=== PATIENT | female | born 1960 | race Caucasian/White ===

== ENCOUNTER 2023-04-18 15:39 | Inpatient (IN) ==
[2023-04-18] MEDS ORDERED: POLYETHYLENE (MIRALAX) 17 GM PACK PO PRN (16:13)
[2023-04-18] MEDS ORDERED: ACETAMINOPHEN 325 MG TAB PO PRN (16:13)
--- NOTE | 2023-04-18 16:27 | History & Physical Report ---
Date of Service April 18, 2023 Assessment & Plan (1) Hypercalcemia: Plan: Hypercalcemia, weight loss - OSH PTH normal, repeat pending Vitamin D pending -PTHRP ordered SPEP, UPEP, serum free chain analysis ordered and pending CTA/P With gastric pouch contents? Blood products with ulcer versus anastomotic leak - if SPEP/UPEP abnormal/M-protein pending --> Add LDH, [id number], peripheral smear, and onc consult History of Nonischemic HF - Records from [facility] requested - 2007 cardiac cath --> no stents. Pt was told ?viral cause of EF 40%. Repeat EF 55% - +Palpitations. Has a loop recorder. Interrogation pending - +bilateral trace ankle edema. Repeat echo ordered. - EKG: nsr, no ischemic changes on admit (2) H/O gastric bypass: Plan: History of Jeremias-en-Y bypass bariatric surgery 2008 with Michael Ritter -CTA/P "There is wall thickening with adjacent inflammatory stranding at the gastrojejunal anastomosis and there is also debris present within the excluded stomach. Follow-up with bariatric surgery recommended in order to exclude anastomotic dehiscence." -Discussed with - Discussed w Dr. Ritter At [facility]. Reviewed imaging findings. Suspect that this is likely ulcerative blood rather than dehiscence especially with her stable clinical appearance. Recommend a oral only upper GI CT study to evaluate for anastomotic dehiscence. If dehiscence is seen then okay for transfer emergently to [facility]. If no dehiscence is noted suspect that this is a bleed, trying to treat with PPI and Carafate at this time. If she is hemodynamically stable then she can follow-up in their office for an outpatient EGD and evaluation. If she has a prolonged hospital course reasonable to transfer not emergently to [facility] at that time but would prefer this to be done to medical service with surgical consultation given her other renal, and hypercalcemia concerns. If nonemergent transfer is desired and patient is anticipated to be in the hospital for at least several days, reach out to med call [facility] to medical service tomorrow and can notify that this was discussed and okay with Dr. Ritter At time of admission and on reassessment abdomen is benign, she is afebrile, and without a leukocytosis. Serial exams, signed out to overnight provider for monitoring (3) Hypertension: Plan: Patient switched to n.p.o. for concern of of ulcerative/upper GI bleed Patient was initially admitted to medical surgical, will moved to PCU for availability of IV antihypertensives Labetalol on-call for hypertension greater than 180 (4) Psoriatic arthritis: Plan: Psoriatic Arthritis - Continue home meds (5) Iron deficiency anemia: Plan: ? Ulcerative anastomotic bleed with microcytosis. No melena/hematochezia/hematemesis Iron studies recently with iron deficiency, patient on admission has a transferrin saturation of 37% and a ferritin of 303. She did receive 1 outpatient Venofer transfusion from oncology (6) Nonischemic cardiomyopathy: Plan: History of Nonischemic HF - Records from [facility] requested - 2007 cardiac cath --> no stents. Pt was told ?viral cause of EF 40%. Repeat EF 55% - +Palpitations. Has a loop recorder. Interrogation pending - +bilateral trace ankle edema. Repeat echo ordered. - EKG: nsr, no ischemic changes on admit (7) Seizure: Plan: Hx Seizure, - Keppra 500mg BID, switch to IV while n.p.o. 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 Admission and Anticipated Discharge Date Admission Date: April 18, 2023 History of Present Illness Primary Care Provider: Bartolo Waggoner MD Natasha is a 62-year-old female with a past medical history of psoriatic arthritis, iron deficiency anemia, hypertension, BRIANNA who was recommended for direct admission for hypercalcemia and potential malignancy evaluation. She was seen by oncology Dr. Doss as an outpatient for hemoglobin decreased from 12-7. She was found to be iron deficient, during that workup she was also noted to have an BRIANNA. She was given IV iron, patient subsequently with weakness and was seen at [facility] and was found to have a potassium of 2.0, hypercalcemia 13.5. She was hydrated and then discharged however repeat creatinine remained with elevation at 1.78, hypercalcemia remained at 13.4 and patient saw nephrology for outpatient referral. On assessment was recommended for direct admission for additional workup and evaluation, accepted by hospitalist service via transfer center. On admission repeat labs including CMP, CBC, ionized calcium, SPEP, UPEP, serum light chains, vitamin D, PTHRP, and CTA/P were ordered Natasha is seen at the bedside. She reports that she has had 20 pounds of weight loss, fatigue, no appetite for 7 to 8 weeks. She reports she has minimal appetite food sometimes makes her nauseous and she has had around 3 episodes of nonbloody, nonmelanic, nonbilious emesis weekly over this time. Endorses intermittent constipation without melena/hematochezia. She reports food does not cause her pain and she does not have abdominal pain, but it does make her little nauseous and she just has a very poor appetite. She has had no fevers but feels fatigued and has had some intermittent chills and finds she gets cold easily. No rigors. She has had no dysuria but has had urinary urgency. Urine does seem to have a strong odor. No flank pain. Endorse history of kidney stones. She reports that she saw a rheumatology who were concerned and she was referred to oncology for anemia. Was found to have low iron levels and BRIANNA, on subsequent PCP follow-up after receiving IV iron x 1 last Sunday her calcium was elevated and potassium was low and she was admitted to [facility]. She reports she was discharged from [facility] this morning in order to make her nephrology appointment, assessment at that time concerning for her persistent hypercalcemia and BRIANNA with weight loss and overall decline and was recommended for direct admission at that time. She reports she does have a history of cardiac disease in her family, with a brother that at around age 48 from a heart attack. She reports she does have a history of reduced ejection fraction, she had a cardiac catheterization in 2007 at [facility] for which stents were not required. She believes she was told she was thought to have had a viral illness, she is on aspirin but had no stents placed. Subsequent echo showed an EF improvement from 40% at that time to follow-up 55%. She sees Dr. Boothe at present. She reports that she sometimes gets palpitations and short of breath on exertion but she has not had any chest pain or neck/jaw pain She reports she has a loop recorder for palpitations currently in place, she is not on any beta-blockers. She did have her losartan increased from 50 mg once daily up to 50 mg twice daily on April 12. This has been held today by nephrology. She has not had any asymmetrical leg swelling, does endorse some slight ankle swelling bilaterally. No calf pain. Does have a history of psoriatic arthritis and is on Otezla and sulfasalazine for this Has history of hypothyroidism, takes Synthroid 150 mcg which was last increased from 125 mg approximately 6 weeks ago Pt Record Radioactive iodine treatment 1980 Tonsillectomy 1986 Hysterectomy 1992 Cholecystectomy 2004 Carpal tunnel release left wrist 2006 Heart catheterization 2008 Colonoscopies in 2009, 2013, 2019 Gastric bypass 2009 Bladder sling 2010 Left knee arthroscopy 2012 Breast reduction surgery 2014 Dental implants 2013, 2015 Abdominoplasty 2015 Loop recorder placement 2021 Allergies Allergy/AdvReac Type Severity Reaction Status Date / Time doxycycline Allergy Hives Verified 04/18/23 13:39 Home Medications Medication Instructions Recorded Confirmed Type apremilast 30 mg tablet (Otezla) 30 mg PO BID 02/09/20 04/18/23 History mecobalamin (vitamin B12) 1,000 mcg IM MONTHLY 04/22/21 04/18/23 History amlodipine 5 mg tablet 5 mg PO HS 04/18/23 04/18/23 History aspirin 81 mg tablet,delayed 81 mg PO QAM 04/18/23 04/18/23 History release (Adult Low Dose Aspirin) levetiracetam 500 mg tablet 500 mg PO BID 04/18/23 04/18/23 History (Keppra) levocetirizine 5 mg tablet 5 mg PO HS 04/18/23 04/18/23 History levothyroxine 150 mcg capsule 125 mcg PO QAM 04/18/23 04/18/23 History losartan 50 mg tablet 50 mg PO BID 04/18/23 04/18/23 History rosuvastatin 20 mg tablet 20 mg PO HS 04/18/23 04/18/23 History sulfasalazine 500 mg tablet 0.5 g PO BID 04/18/23 04/18/23 History Past Med/Surg History Medical History (Updated 04/18/23 @ 20:40 by Darian Jorgensen MD) Hypothyroid Psoriasis Seasonal allergies Hypertension Surgical History (Updated 04/18/23 @ 20:40 by Darian Jorgensen MD) H/O abdominoplasty History of surgery dental implant H/O bilateral breast reduction surgery S/P left knee arthroscopy History of surgery bladder sling H/O gastric bypass H/O colonoscopy History of cardiac cath History of carpal tunnel surgery of left wrist History of surgery disc decompression History of cholecystectomy H/O: hysterectomy Hx of tonsillectomy Family History Brother Hypertension Heart disease Mother Hypertension Cancer Father Hypertension Stroke Cancer Heart disease Grandfather Stroke Heart disease Aunt Allergies Denies family history of Hearing loss No family history of adverse response to anesthesia No family history of bleeding disorder Asthma Social History Smoking Status: Never smoker Do You Dip or Chew Tobacco: No; Hx Alcohol Use: Yes Alcohol type: beer, wine and hard liquor Alcohol Intake Frequency Comment: Socially per new patient form Hx Substance Use: No Preferred Language: Maori Communication Ability: Effective Body Fitter Required: No Beliefs That Will Affect Care: None marital status: Current Living Situation: Spouse current occupational status: employed 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 NAD. Cooperative. HEENT: Atraumatic, normocephalic. PERLAA. EoM intact. Pulm: CTAB A&P. -wheezes, -rales, -rhonchi. Symmetrical chest rise. No increase in work of breathing. No respiratory distress. Cardiac: RRR, -mrg. Radial pulses intact and symmetrical. Abdominal: Nontender, nondistended, soft. BS diminished Code Status & VTE Plan VTE Prophylaxis Plan VTE Prophylaxis will be ordered: Yes PG Care Time/CCT Total # of Minutes Spent Total Time Spent with Patient: Total time spent is greater than 50% in coordination of care (as documented) at patient's floor/unit and/or counseling patient: Coding Level of Care Code 82361 INT INP/OBS CARE 3/75MIN Diagnoses Hypercalcemia E83.52 H/O gastric bypass Z98.84 Hypertension I10 Psoriatic arthritis L40.50 Iron deficiency anemia D50.9 Nonischemic cardiomyopathy I42.8 Seizure R56.9
[2023-04-18 17:35] LABS: Anisocytosis Present; Basophils # (auto) 0.05 K/uL (0.00-0.20); Basophils % (auto) 1.1 %; Eosinophils # (auto) 0.22 K/uL (0.00-0.50); Eosinophils % (auto) 4.7 %; Hematocrit (blood only) 27.5 % (37.0-47.0); Hemoglobin 8.4 g/dl (12.0-16.0); Immature Granulocytes # (auto) 0.01 K/uL (0.01-0.20); Immature Granulocytes % (auto) 0.2 %; Lymphocytes # (auto) 1.04 K/uL (1.20-3.40); Mean Corpuscular Hemoglobin 21.3 pg (25.0-34.0); Mean Corpuscular Hgb Conc 30.5 g/dL (32.0-36.0); Mean Corpuscular Volume 69.6 fL (80.0-100.0); Mean Platelet Volume 9.7 fL (9.4-12.4); Microcytosis Present; Monocytes # (auto) 0.63 K/uL (0.11-0.59); Monocytes % (auto) 13.3 %; Neutrophils # (auto) 2.77 K/uL (1.40-6.50); Neutrophils % (auto) 58.7 %; Platelet Count 219 K/uL (130-400); RDW Coefficient of Variation 22.5 % (11.5-14.5); RDW Standard Deviation 54.4 fL (36.4-46.3); Red Blood Count 3.95 M/uL (4.20-5.40); White Blood Count 4.72 K/ul (4.8-10.8)
[2023-04-18 17:38] LABS: Reticulocyte % 1.42 % (0.50-2.00)
[2023-04-18 18:02] LABS: Appearance Urine Clear (Clear); Bilirubin Urine Negative (Negative); Blood Urine Negative (Negative); Color Urine Yellow; Glucose Urine UA Negative (Negative); Ketones Urine Negative (Negative); Leukocyte Esterase Urine Negative (Negative); Nitrite Urine Negative (Negative); Protein Urine Negative (Negative); Urobilinogen Urine Negative (Negative)
[2023-04-18 18:03] LABS: Alanine Aminotransferase 16 U/L (7-52); Albumin Globulin Ratio 1.6 (0.9-2); Albumin Level 3.9 gm/dl (3.4-5.0); Alkaline Phosphatase 60 U/L (34-104); Anion Gap 5 (3-11); Aspartate Aminotransferase 27 U/L (13-39); Bilirubin,Total 0.3 mg/dl (0.2-1.0); Blood Urea Nitrogen 12 mg/dl (6-23); Calcium 11.3 mg/dl (8.6-10.3); Carbon Dioxide 24 mmol/L (21-32); Chloride 112 mmol/L (98-107); Est GFR (African American) 49.1 ml/min; Est GFR (Non-African American) 42.4 ml/min; Globulin 2.4 gm/dl (2.5-4.0); Glucose 86 mg/dl (70-99(Fasting)); Iron 120 mcg/dl (35-150); Magnesium 2.2 mg/dl (1.7-2.4); Phosphorus 2.2 mg/dl (2.5-4.9); Potassium 3.9 mmol/L (3.5-5.1); Sodium 141 mmol/L (136-145); Total Iron Binding Cap Calc 328 mcg/dl (250-450); Total Protein 6.3 gm/dl (6.0-8.3); Transferrin (FE) Percent Satur 37 % (15-50); Unsaturated Iron Binding Cap 208 mcg/dl (155-355)
--- NOTE | 2023-04-18 18:05 | XRay Report ---
XR chest 2V PA/lateral HISTORY: 62 years-old Female hypercalcemia assess for nodule, mass acute hypercalcemia COMPARISON: None TECHNIQUE: PA and lateral views of the chest FINDINGS: Cardiac silhouette is upper limits of normal in size. A cardiac loop recorder device is noted. Mild d iffuse reticular interstitial coarsening. No pneumothorax, pleural effusion or airspace consolidation . The bones appear grossly intact. IMPRESSION: 1. No air space consolidation typical for pneumonia. 2. Mild diffuse interstitial coarsening, possibly chronic. ACT 112: Negative or not required by law. The above report was generated using voice recognition software. It may contain grammatical, syntax o r spelling errors. Electronically signed by: Jonah Babb M.D. 04/18/2023 6:04 PM
[2023-04-18 18:17] LABS: Thyroid Stimulating Hormone 3.869 uIu/ml (0.300-4.500)
[2023-04-18 18:23] LABS: Ferritin 303.5 ng/ml (8-388)
[2023-04-18] MEDS: SODIUM CHLORIDE 0.9% 1,000 ML IV SCH (18:32)
--- NOTE | 2023-04-18 19:20 | CT Scan Report ---
ABDOMEN AND PELVIS CT WITHOUT CONTRAST CT DOSE: 742.41 mGy.cm HISTORY: Acute kidney injury BRIANNA, ?malignancy. Contrast limited by renal dz TECHNIQUE: Multiaxial CT images of the abdomen and pelvis were performed without contrast. A dose lo wering technique was utilized adhering to the principles of ALARA. COMPARISON STUDY: CT abdomen and pelvis 09/10/2010 FINDINGS: Decreased attenuation of the cardiac blood pool suggestive of anemia. Intralobular septal t hickening suggestive of pulmonary edema. No free air. The unenhanced spleen, pancreas and adrenal gla nds are unremarkable. Cholecystectomy. Unremarkable liver. 4 mm nonobstructing calculus in the inferi or pole left kidney. Punctate nonobstructing calculus in the superior pole right kidney. No ureteral calculi or hydronephrosis. Hysterectomy. Atherosclerosis of the abdominal aorta. No lymphadenopathy. Gastric bypass. There is mild inflammator y stranding with wall thickening at the gastric jejunal anastomosis on image 83 series 3. Small amoun t of debris noted within the excluded stomach along with an air-filled sac outpouching of the exclude d stomach on image 99 series 3. No bowel obstruction. Colonic diverticulosis. Normal appendix. Unrema rkable soft tissues. No acute fracture. IMPRESSION: 1. Jreemias-en-Y gastric bypass redemonstrated. There is wall thickening with adjacent inflammatory stran ding at the gastrojejunal anastomosis and there is also debris present within the excluded stomach. F ollow-up with bariatric surgery recommended in order to exclude anastomotic dehiscence. 2. No bowel obstruction or pneumoperitoneum. 3. Normal appendix. 4. Nonobstructing bilateral nephrolithiasis. 5. Additional findings as above. ACT 112: Negative or not required by law. The above report was generated using voice recognition software. It may contain grammatical, syntax o r spelling errors. Electronically signed by: Jonah Babb M.D. 04/18/2023 7:18 PM
[2023-04-18] MEDS: PLASMA-LYTE A 1,000 ML IV SCH (21:02)
[2023-04-18] MEDS ORDERED: LABETALOL HCL IV 5 MG/ML 20ML IV PRN (21:19)
[2023-04-18] MEDS: Patient's HEIGHT &/or WEIGHT Needed SCH (21:20)
--- NOTE | 2023-04-18 21:20 | Surgery Consultation ---
Date of Consultation April 18, 2023 Assessment & Plan (1) H/O gastric bypass: The patient has been admitted on the hospital service secondary to hypercalcemia. General surgery has been asked to see due to CT scan abnormality as noted previously in this document. I discussed the case with the admitting hospitalist. Following my visit with the patient the admitting hospitalist was able speak with the patient's bariatric surgeon in [place], [place]. He has reviewed the CT scans and feels that an anastomotic dehiscence or anastomotic leak is unlikely. He feels that this may represent an ulcer at the anastomosis with some blood accumulating near the ulcer. He is recommended that the patient undergo a CT scan of the abdomen and pelvis utilizing oral contrast and if there is any evidence of contrast extravasation/anastomotic leak he will except the patient in transfer for further treatment. He does note that if there is no extravasation that this likely represents an ulcer and the patient should be placed on a proton pump inhibitor and patient should undergo an EGD. At the following time the patient does have a benign abdominal exam. With the above plan noted if the patient does require any surgical intervention this will be performed in [place], [place] where the patient had her gastric bypass surgery. Supervising Physician Co-Signing Physician Notes d/w PA, labs and imaging reviewed, agree with above. h/o LRYGB w/u for hypercalcemia, ct a/p with inflammation at GJ. CT personally reviewed, and agree with baratric surgeons assessment that this likely represents marginal ulcer, especially given recent anemia. Rec repeat ct with oral contrast, if leak then trx. If not, then needs EGD and PPI, avoid nsaid/etoh/tob History of Present Illness Reason for Consultation: Concern for Jeremias-en-Y gastrojejunal anastomotic leak Attending Physician: Darian Jorgensen MD History of Present Illness This is a 62-year-old female who was admitted to the hospital as a direct admission secondary to hypercalcemia. There is concern the patient may have an underlying malignancy. Of note, the patient has been seen by Dr. Doss of oncology as an outpatient secondary to decrease in her hemoglobin. The patient was noted to have iron deficiency as well as acute kidney injury. The patient did receive intravenous iron infusion secondary to this problem. She has had serial labs followed which revealed the patient had an elevated calcium level and for this reason she was referred to nephrology as an outpatient and due to her elevated calcium level inpatient admission was recommended. Since arrival to [facility] the patient has had labs and imaging which) reviewed. The patient did have a CT scan of her abdomen pelvis. Patient has a history of a Jeremias-en-Y gastric bypass the patient was noted to have inflammatory stranding near the gastrojejunal anastomosis. The interpreting radiologist could not exclude anastomotic dehiscence. There is no evidence of pneumoperitoneum or bowel obstruction. Labs include a CBC her white blood cell count is 4.7. Hemoglobin and hematocrit are 8.4 and 27.5. Platelet count is normal. Patient's chemistry profile showed sodium and potassium are normal. Her BUN and creatinine are 12 and 1.3. Calcium level is elevated at 11.3. General surgery was asked to evaluate the patient due to the findings related to her Jeremias-en-Y gastric bypass. The patient does note that she does have some generalized abdominal pain from time to time and this has been going on for several weeks and it usually self resolves. She also notes that over the past several weeks she has had some intermittent nausea and vomiting. She denies ever vomiting any blood. She does not report any melanotic stools. Overall at the present time the patient notes her abdomen does not hurt. At the time of my interview she was resting comfortably in bed she was no distress. Allergies Allergy/AdvReac Type Severity Reaction Status Date / Time doxycycline Allergy Hives Verified 04/18/23 13:39 Home Medications Medication Instructions Recorded Confirmed Type apremilast 30 mg tablet (Otezla) 30 mg PO BID 02/09/20 04/18/23 History mecobalamin (vitamin B12) 1,000 mcg IM MONTHLY 04/22/21 04/18/23 History amlodipine 5 mg tablet 5 mg PO HS 04/18/23 04/18/23 History aspirin 81 mg tablet,delayed 81 mg PO QAM 04/18/23 04/18/23 History release (Adult Low Dose Aspirin) levetiracetam 500 mg tablet 500 mg PO BID 04/18/23 04/18/23 History (Keppra) levocetirizine 5 mg tablet 5 mg PO HS 04/18/23 04/18/23 History levothyroxine 150 mcg capsule 125 mcg PO QAM 04/18/23 04/18/23 History losartan 50 mg tablet 50 mg PO BID 04/18/23 04/18/23 History rosuvastatin 20 mg tablet 20 mg PO HS 04/18/23 04/18/23 History sulfasalazine 500 mg tablet 0.5 g PO BID 04/18/23 04/18/23 History Patient History Medical History Hypothyroid Psoriasis Seasonal allergies Hypertension Surgical History H/O abdominoplasty History of surgery dental implant H/O bilateral breast reduction surgery S/P left knee arthroscopy History of surgery bladder sling H/O gastric bypass H/O colonoscopy History of cardiac cath History of carpal tunnel surgery of left wrist History of surgery disc decompression History of cholecystectomy H/O: hysterectomy Hx of tonsillectomy Family History Brother Hypertension Heart disease Mother Hypertension Cancer Father Hypertension Stroke Cancer Heart disease Grandfather Stroke Heart disease Aunt Allergies Denies family history of Hearing loss No family history of adverse response to anesthesia No family history of bleeding disorder Asthma Social History Smoking Status: Never smoker Do You Dip or Chew Tobacco: No; Hx Alcohol Use: Yes Alcohol type: beer, wine and hard liquor Alcohol Intake Frequency Comment: Socially per new patient form Hx Substance Use: No Preferred Language: Venezuelan Communication Ability: Effective Machinery Rigger Required: No Beliefs That Will Affect Care: None marital status: Current Living Situation: Spouse current occupational status: employed 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 How many Children do You have: 2 Other Information That Helps Us Care for You: No Feels Safe at Home: Yes Safety Concerns: Feels Safe At This Time Assistive Devices: Glasses Review of Systems Constitutional: no fever and no chills Ear, Nose, Mouth, Throat: no ear pain Respiratory: no cough Cardiovascular: no chest pain Gastrointestinal: as per Subjective / HPI Genitourinary: no dysuria Musculoskeletal: no back pain Integumentary: no rash Neurologic: no localized weakness Physical Exam Constitutional: WD/WN, vitals as above Eyes: no conjunctival abnormality ENMT: Ears: no hearing impairment and no external ear abnormality Mouth: no oropharynx abnormality Neck: trachea midline Respiratory: normal respiratory effort; no respiratory distress and no labored breathing Cardiovascular: Rate/Rhythm: regular rate and regular rhythm Gastrointestinal (Abdomen): Abdomen is soft and nondistended. There is no pain with palpation at the time my exam. There is no rebound tenderness or guarding. Musculoskeletal: No calf tenderness Skin: no rashes Neurologic: moves all extremities Psychiatric: A+Ox3, euthymic affect Results & Data Vital Signs (Past 12 Hours) Vital Signs Temp Pulse Resp BP Pulse Ox O2 Del Method 04/18/23 16:20 36.3 C L 89 16 179/80 H 96 Room Air PG Care Time/CCT Total # of Minutes Spent Total Time Spent with Patient: Total time spent is greater than 50% in coordination of care (as documented) at patient's floor/unit and/or counseling patient: Coding Level of Care Code 65537 OFFICE CONSULT LVL 55M Diagnoses H/O gastric bypass Z98.84
[2023-04-18] MEDS: amLODIPine BESYLATE 5 MG TAB PO SCH (21:23)
[2023-04-18] MEDS: levETIRAcetam 500 MG TAB PO SCH (21:23)
[2023-04-18] MEDS: CETIRIZINE HCL 10 MG TABLET PO SCH (21:23)
[2023-04-18] MEDS: sulfaSALAzine 500 MG TABLET PO SCH (21:24)
[2023-04-18] MEDS: ROSUVASTATIN CALCIUM 20 MG TAB PO SCH (21:24)
[2023-04-18] MEDS: METOPROLOL TARTRATE 25 MG TAB PO SCH (21:24)
[2023-04-18] MEDS: PANTOprazole 40 MG in SYRINGE 0 ML IV SCH (21:30)
[2023-04-18] MEDS ORDERED: LORazepam 2 MG in SYRINGE 1 ML IV PRN (21:30)
--- NOTE | 2023-04-18 21:47 | Ultrasound Report ---
Exam(s): US VENOUS BILATERAL LOWER EXTREMITIES EXAM: US Duplex Bilateral Lower Extremities Veins CLINICAL HISTORY: leg swelling, possible malignancy, dvt r/o. TECHNIQUE: Real-time duplex ultrasound scan of the bilateral lower extremity veins integrating B-mode two-dimensional vascular structure, Doppler spectral analysis, color flow Doppler imaging and compression. COMPARISON: No relevant prior studies available. FINDINGS: Right deep veins: Unremarkable. No DVT in the right common femoral, femoral, proximal deep femoral or popliteal veins. The veins demonstrate normal color flow, are normally compressible, with normal phasic flow and/or augmentation response. The interrogated calf veins are patent. Right superficial veins: Unremarkable. No thrombus in the saphenofemoral junction. Left deep veins: Unremarkable. No DVT in the left common femoral, femoral, proximal deep femoral or popliteal veins. The veins demonstrate normal color flow, are normally compressible, with normal phasic flow and/or augmentation response. The interrogated calf veins are patent. Left superficial veins: Unremarkable. No thrombus in the saphenofemoral junction. Soft tissues: No acute findings. No popliteal cyst. IMPRESSION: No evidence for deep vein thrombosis involving the bilateral lower extremities. Electronically signed by: Michael Varghese MD 04/18/23 21:46 PM
[2023-04-18] MEDS: levETIRAcetam IV 500 MG in SODIUM CHLOR 0.9% MINI-B 100 ML IV SCH (22:06)
[2023-04-18] MEDS: METOPROLOL TARTRATE 1 MG/ML VIAL IV SCH (23:33)
[2023-04-19] MEDS ORDERED: HYDROmorphone INJ 0.5 MG/0.5 ML SYR IV PRN (00:16)
[2023-04-19] MEDS: SUCRALFATE 1 GM/10 ML UDC PO SCH (00:40)
--- NOTE | 2023-04-19 00:50 | CT Scan Report ---
Exam(s): CT ABDOMEN + PELVIS With Contrast Oral - High Density Amt: 30 ml gastro EXAM: CT Abdomen and Pelvis With Intravenous Contrast CLINICAL HISTORY: r/o r-en-y anastomotic leak. TECHNIQUE: Axial computed tomography images of the abdomen and pelvis with intravenous contrast. CTDI is 17.2 mGy and DLP is 835.07 mGy-cm. Automated exposure control was utilized for the study. A dose lowering technique was utilized adhering to the principles of ALARA. CONTRAST: Patient received 30 ml gastro of Oral - High Density contrast COMPARISON: Noncontrast CT abdomen and pelvis dated 04/18/2023 FINDINGS: Lung bases: Unremarkable. No mass. No consolidation. ABDOMEN: Liver: Unremarkable. No mass. Gallbladder and bile ducts: Cholecystectomy. No ductal dilation. Pancreas: Unremarkable. No mass. No ductal dilation. Spleen: Unremarkable. No splenomegaly. Adrenals: Unremarkable. No mass. Kidneys and ureters: Subcentimeter punctate nonobstructive nephrolithiasis in the inferior pole of the left kidney. The unenhanced kidneys are otherwise unremarkable. No hydronephrosis or ureteral stones. Stomach and bowel: Stable postsurgical changes consistent with gastric bypass. No evidence for bowel obstruction with oral contrast noted in the mid to small bowel with extension to the cecum and proximal ascending colon. No evidence for contrast leakage. Stable postsurgical changes involving small bowel loops in the left abdomen. No mucosal thickening. PELVIS: Appendix: A normal caliber appendix is noted along the posterior medial aspect of the cecum. Bladder: Unremarkable. No mass. Reproductive: Status post hysterectomy. ABDOMEN and PELVIS: Intraperitoneal space: Unremarkable. No free air. No significant fluid collection. Bones/joints: No acute fracture. No dislocation. Soft tissues: The overlying soft tissues are stable in appearance. No hernia. Vasculature: Unremarkable. No abdominal aortic aneurysm. Lymph nodes: Unremarkable. No enlarged lymph nodes. IMPRESSION: Stable postsurgical changes consistent with gastric bypass. No evidence for bowel obstruction with oral contrast noted in the mid to small bowel with extension to the cecum and proximal ascending colon. No evidence for contrast leakage. No abscess or pneumoperitoneum. Electronically signed by: Michael Varghese MD 04/19/23 00:49 AM
[2023-04-19] MEDS: ACETAMINOPHEN 1,000 MG/100 ML VIAL IV PRN (00:58)
[2023-04-19] MEDS: LABETALOL HCL IV 5 MG/ML 20ML IV STA (01:00)
[2023-04-19] MEDS: HYDROmorphone INJ 0.5 MG/0.5 ML SYR IV PRN (01:29)
[2023-04-19 04:08] LABS: Basophils # (auto) 0.04 K/uL (0.00-0.20); Eosinophils # (auto) 0.24 K/uL (0.00-0.50); Eosinophils % (auto) 5.7 %; Hematocrit (blood only) 24.9 % (37.0-47.0); Hemoglobin 7.8 g/dl (12.0-16.0); Immature Granulocytes # (auto) 0.01 K/uL (0.01-0.20); Immature Granulocytes % (auto) 0.2 %; Lymphocytes % (auto) 28.7 %; Mean Corpuscular Hemoglobin 21.4 pg (25.0-34.0); Mean Corpuscular Hgb Conc 31.3 g/dL (32.0-36.0); Mean Corpuscular Volume 68.4 fL (80.0-100.0); Monocytes # (auto) 0.64 K/uL (0.11-0.59); Monocytes % (auto) 15.3 %; Neutrophils # (auto) 2.05 K/uL (1.40-6.50); Neutrophils % (auto) 49.1 %; RDW Coefficient of Variation 22.5 % (11.5-14.5); RDW Standard Deviation 54.3 fL (36.4-46.3); Red Blood Count 3.64 M/uL (4.20-5.40); White Blood Count 4.18 K/ul (4.8-10.8)
[2023-04-19 04:25] LABS: BUN Creatinine Ratio 7.6 (10-20); Calcium 10.6 mg/dl (8.6-10.3); Creatinine Clr Calc Pharmacy 43.3 ml/min; Est GFR (African American) 50.4 ml/min; Est GFR (Non-African American) 43.5 ml/min; Phosphorus 2.7 mg/dl (2.5-4.9); Potassium 3.5 mmol/L (3.5-5.1)
[2023-04-19 04:49] LABS: Anisocytosis Present; Mean Platelet Volume 9.5 fL (9.4-12.4); Microcytosis Present; Platelet Count 193 K/uL (130-400)
[2023-04-19] MEDS: LEVOTHYROXINE SODIUM 125 MCG TABLET PO SCH (06:32)
[2023-04-19] MEDS ORDERED: LABETALOL HCL IV 5 MG/ML 20ML IV PRN (07:53)
[2023-04-19] MEDS: LABETALOL HCL IV 5 MG/ML 20ML IV PRN (08:05)
--- NOTE | 2023-04-19 08:45 | Gastrointestinal Consultation ---
Date of Consultation April 19, 2023 Assessment & Plan (1) H/O gastric bypass: 62 year old female with history of RYGB in 2013 admitted with anemia w/o report of black or bloody stools however, imaging yesterday showing wall thickening with adjacent inflammatory stranding at the gastrojejunal anastomosis raising concern for ulceration NPO Plan for EGD IV PPI bolus, drip No NSAIDs Ok for baby ASA Trend H&H Monitor and document GI output Transfuse as needed. Thank you for allowing us to participate in the care of this patient. Please call with any acute changes, questions or concerns. Please see addendum below with additional recommendation from my supervising physician. History of Present Illness Reason for Consultation: GI bleed Requesting Physician: Linda Attending Physician: Genevieve Mckeon MD History of Present Illness 62 year old female with history of psoriatic arthritis, iron deficiency anemia, hypertension, BRIANNA, RYGB in 2012 direct admission for hypercalcemia - GI asked to evaluate for GI bleed. Pt was seen and evaluated, chart reviewed. Notes that for the 3-4 weeks she has had upper abd discomfort, inability to tolerate PO, fullness with few bites of food and nausea. She has had intermittent emesis but denies seeing any black or bloody emesis. She notes her bowel movements are infrequent. Does not recall seeing any black or bloody stools. Per documentation, there was review of CT imaging from general surgery and her RYGB team in [facility] and GI was asked to evaluate for ?anastomotic ulceration. Denies NSAIDs No ETOH No tobacco No steroid use EGD/Colon at [facility] in 2019, unremarkable examination per patient CTAP 2023: Stable postsurgical changes consistent with gastric bypass. No evidence for bowel obstruction with oral contrast noted in the mid to small bowel with extension to the cecum and proximal ascending colon. No evidence for contrast leakage. Stable postsurgical changes involving small bowel loops in the left abdomen. No mucosal thickening. CTAP 2023: . Jeremias-en-Y gastric bypass redemonstrated. There is wall thickening with adjacent inflammatory stranding at the gastrojejunal anastomosis and there is also debris present within the excluded stomach. Follow-up with bariatric s urgery recommended in order to exclude anastomotic dehiscence. Allergies Allergy/AdvReac Type Severity Reaction Status Date / Time doxycycline Allergy Hives Verified 04/18/23 13:39 Home Medications Medication Instructions Recorded Confirmed Type apremilast 30 mg tablet (Otezla) 30 mg PO BID 02/09/20 04/18/23 History mecobalamin (vitamin B12) 1,000 mcg IM MONTHLY 04/22/21 04/18/23 History amlodipine 5 mg tablet 5 mg PO HS 04/18/23 04/18/23 History aspirin 81 mg tablet,delayed 81 mg PO QAM 04/18/23 04/18/23 History release (Adult Low Dose Aspirin) levetiracetam 500 mg tablet 500 mg PO BID 04/18/23 04/18/23 History (Keppra) levocetirizine 5 mg tablet 5 mg PO HS 04/18/23 04/18/23 History levothyroxine 150 mcg capsule 125 mcg PO QAM 04/18/23 04/18/23 History losartan 50 mg tablet 50 mg PO BID 04/18/23 04/18/23 History rosuvastatin 20 mg tablet 20 mg PO HS 04/18/23 04/18/23 History sulfasalazine 500 mg tablet 0.5 g PO BID 04/18/23 04/18/23 History Patient History Medical History Hypothyroid Psoriasis Seasonal allergies Hypertension Surgical History H/O abdominoplasty History of surgery dental implant H/O bilateral breast reduction surgery S/P left knee arthroscopy History of surgery bladder sling H/O gastric bypass H/O colonoscopy History of cardiac cath History of carpal tunnel surgery of left wrist History of surgery disc decompression History of cholecystectomy H/O: hysterectomy Hx of tonsillectomy Family History Brother Hypertension Heart disease Mother Hypertension Cancer Father Hypertension Stroke Cancer Heart disease Grandfather Stroke Heart disease Aunt Allergies Denies family history of Hearing loss No family history of adverse response to anesthesia No family history of bleeding disorder Asthma Social History Smoking Status: Never smoker Do You Dip or Chew Tobacco: No; Hx Alcohol Use: Yes Alcohol type: beer, wine and hard liquor Alcohol Intake Frequency Comment: Socially per new patient form Hx Substance Use: No Preferred Language: Palauan Communication Ability: Effective Therapeutic Dietitian Required: No Beliefs That Will Affect Care: None marital status: Current Living Situation: Spouse current occupational status: employed current occupation: [employer] How many Children do You have: 2 Other Information That Helps Us Care for You: No Feels Safe at Home: Yes Safety Concerns: Feels Safe At This Time Assistive Devices: Glasses Review of Systems Review of Systems: All systems reviewed & are unremarkable except as noted in HPI & below Physical Exam Constitutional: WD/WN, vitals as above Respiratory: normal respiratory effort, lungs clear to auscultation Cardiovascular: Rate/Rhythm: regular rate and regular rhythm Gastrointestinal (Abdomen): normal bowel sounds, soft, nontender, no hepatosplenomegaly Skin: no rashes, warm and dry Results & Data Vital Signs (Past 12 Hours) Vital Signs Temp Pulse Pulse Resp BP BP Pulse Ox 04/19/23 08:05 73 202/91 H 04/19/23 07:36 36.3 C L 04/19/23 07:30 65 11 L 92 04/19/23 07:00 68 17 95 04/19/23 07:00 202/91 H 04/19/23 06:39 66 186/92 H 04/19/23 06:06 68 181/80 H 04/19/23 06:04 71 18 95 04/19/23 06:04 181/80 H 04/19/23 06:00 66 13 94 04/19/23 06:00 164/79 H 04/19/23 05:00 172/87 H 04/19/23 05:00 66 14 93 04/19/23 04:00 36.7 C 63 14 162/93 H 94 04/19/23 04:00 68 15 94 04/19/23 03:00 14 168/86 H 04/19/23 03:00 74 15 93 04/19/23 02:00 186/76 H 04/19/23 02:00 71 16 93 04/19/23 01:42 36.6 C 73 16 194/87 H 93 04/19/23 01:40 194/87 H 04/19/23 01:40 75 18 92 04/19/23 01:30 75 18 93 04/19/23 01:27 80 17 94 04/19/23 01:25 72 194/87 H 04/19/23 01:25 16 191/95 H 94 04/19/23 01:25 92 H 17 94 04/19/23 01:00 181/91 H 04/19/23 01:00 69 20 94 04/19/23 00:50 195/98 H 04/19/23 00:50 73 16 94 04/19/23 00:40 178/83 H 04/19/23 00:40 77 16 93 04/19/23 00:31 193/124 H 04/19/23 00:31 85 22 95 04/19/23 00:30 82 04/19/23 00:20 196/102 H 04/19/23 00:20 77 19 91 04/19/23 00:10 72 22 92 04/19/23 00:10 198/103 H 04/19/23 00:01 74 209/104 H 04/19/23 00:00 74 14 93 04/18/23 23:58 76 18 204/117 H 94 04/18/23 23:58 76 20 93 04/18/23 23:34 77 23 93 04/18/23 23:00 78 04/18/23 23:00 04/18/23 22:29 36.5 C 79 16 196/78 H 96 04/18/23 21:37 36.6 C 87 16 182/92 H 97 04/18/23 21:00 O2 Del Method 04/19/23 08:05 04/19/23 07:36 04/19/23 07:30 04/19/23 07:00 Room Air 04/19/23 07:00 04/19/23 06:39 04/19/23 06:06 04/19/23 06:04 Room Air 04/19/23 06:04 04/19/23 06:00 Room Air 04/19/23 06:00 04/19/23 05:00 04/19/23 05:00 Room Air 04/19/23 04:00 Room Air 04/19/23 04:00 04/19/23 03:00 04/19/23 03:00 Room Air 04/19/23 02:00 04/19/23 02:00 Room Air 04/19/23 01:42 Room Air 04/19/23 01:40 04/19/23 01:40 Room Air 04/19/23 01:30 04/19/23 01:27 04/19/23 01:25 04/19/23 01:25 Room Air 04/19/23 01:25 04/19/23 01:00 04/19/23 01:00 04/19/23 00:50 04/19/23 00:50 04/19/23 00:40 04/19/23 00:40 04/19/23 00:31 04/19/23 00:31 04/19/23 00:30 04/19/23 00:20 04/19/23 00:20 04/19/23 00:10 04/19/23 00:10 04/19/23 00:01 04/19/23 00:00 04/18/23 23:58 Room Air 04/18/23 23:58 04/18/23 23:34 04/18/23 23:00 04/18/23 23:00 Room Air 04/18/23 22:29 Room Air 04/18/23 21:37 Room Air 04/18/23 21:00 Room Air Laboratory Results 04/19/23 04/18/23 04/18/23 Range/Units 03:38 Unknown 17:25 WBC 4.18 L (4.8-10.8) K/ul RBC 3.64 L (4.20-5.40) M/uL Hgb 7.8 L (12.0-16.0) g/dl Hct 24.9 L (37.0-47.0) % MCV 68.4 L (80.0-100.0) fL MCH 21.4 L (25.0-34.0) pg MCHC 31.3 L (32.0-36.0) g/dL RDW Std Deviation 54.3 H (36.4-46.3) fL RDW Coeff of Keli 22.5 H (11.5-14.5) % Plt Count 193 (130-400) K/uL MPV 9.5 (9.4-12.4) fL Immature Gran % (Auto) 0.2 % Neut % (Auto) 49.1 % Lymph % (Auto) 28.7 % Dolores % (Auto) 15.3 % Eos % (Auto) 5.7 % Baso % (Auto) 1.0 % Reticulocyte % (Auto) (0.50-2.00) % Neut # (Auto) 2.05 (1.40-6.50) K/uL Lymph # (Auto) 1.20 (1.20-3.40) K/uL Dolores # (Auto) 0.64 H (0.11-0.59) K/uL Eos # (Auto) 0.24 (0.00-0.50) K/uL Baso # (Auto) 0.04 (0.00-0.20) K/uL Reticulocyte # (0.020-0.100) 10^6/uL Immature Gran # (Auto) 0.01 (0.01-0.20) K/uL Anisocytosis Present Microcytosis Present Sodium 142 (136-145) mmol/L Potassium 3.5 (3.5-5.1) mmol/L Chloride 111 H (98-107) mmol/L Carbon Dioxide 26 (21-32) mmol/L Anion Gap 5 (3-11) BUN 10 (6-23) mg/dl Creatinine 1.31 H (0.6-1.2) mg/dl Est Cr Clr Drug Dosing 43.3 Est GFR ( Amer) 50.4 ml/min Est GFR (Non-Af Amer) 43.5 ml/min BUN/Creatinine Ratio 7.6 L (10-20) Glucose 82 (70-99(Fasting)) mg/dl Calcium 10.6 H (8.6-10.3) mg/dl Ionized Calcium (1.12-1.32) mmol/L Phosphorus 2.7 (2.5-4.9) mg/dl Magnesium 2.0 (1.7-2.4) mg/dl Iron (35-150) mcg/dl TIBC (250-450) mcg/dl Unsaturated IBC (155-355) mcg/dl Transferrin % Sat (15-50) % Ferritin (8-388) ng/ml Total Bilirubin (0.2-1.0) mg/dl AST (13-39) U/L ALT (7-52) U/L Alkaline Phosphatase (34-104) U/L Total Protein (6.0-8.3) gm/dl Total Protein (PEP) Pending Albumin (3.4-5.0) gm/dl Albumin (PEP) Pending Globulin (2.5-4.0) gm/dl Albumin/Globulin Ratio (0.9-2) Ewjho-7-Gcdlghrgl Pending Stlwa-8-Eskpzegwb Pending Ajzp-1-Olzeuktl Pending Wexy-6-Daobpyia Pending Gamma Globulins Pending Monoclonal Peak 3 Pending Ser Monoclonl Protein Pending Ser Monoclonal Prot 2 Pending PEP Interpretation Pending 25-OH Vitamin D Total (30-100) ng/ml TSH (0.300-4.500) uIu/ml PTH Intact (12.0-88.0) pg/ml PTH Related Protein Urine Color Yellow Urine Appearance Clear (Clear) Urine pH 6.0 (4.5-7.5) Ur Specific [place] 1.010 (1.000-1.030) Urine Protein Negative (Negative) Urine Glucose (UA) Negative (Negative) Urine Ketones Negative (Negative) Urine Blood Negative (Negative) Urine Nitrite Negative (Negative) Urine Bilirubin Negative (Negative) Urine Urobilinogen Negative (Negative) Ur Leukocyte Esterase Negative (Negative) Nasal Screen MRSA (PCR) Negative (Negative) Free Homeworth LC, Quant Free Lambda LC, Quant Free Homeworth/Lambda Ratio 04/18/23 Range/Units 16:46 WBC 4.72 L (4.8-10.8) K/ul RBC 3.95 L (4.20-5.40) M/uL Hgb 8.4 L (12.0-16.0) g/dl Hct 27.5 L (37.0-47.0) % MCV 69.6 L (80.0-100.0) fL MCH 21.3 L (25.0-34.0) pg MCHC 30.5 L (32.0-36.0) g/dL RDW Std Deviation 54.4 H (36.4-46.3) fL RDW Coeff of Keli 22.5 H (11.5-14.5) % Plt Count 219 (130-400) K/uL MPV 9.7 (9.4-12.4) fL Immature Gran % (Auto) 0.2 % Neut % (Auto) 58.7 % Lymph % (Auto) 22.0 % Dolores % (Auto) 13.3 % Eos % (Auto) 4.7 % Baso % (Auto) 1.1 % Reticulocyte % (Auto) 1.42 (0.50-2.00) % Neut # (Auto) 2.77 (1.40-6.50) K/uL Lymph # (Auto) 1.04 L (1.20-3.40) K/uL Dolores # (Auto) 0.63 H (0.11-0.59) K/uL Eos # (Auto) 0.22 (0.00-0.50) K/uL Baso # (Auto) 0.05 (0.00-0.20) K/uL Reticulocyte # 0.060 (0.020-0.100) 10^6/uL Immature Gran # (Auto) 0.01 (0.01-0.20) K/uL Anisocytosis Present Microcytosis Present Sodium 141 (136-145) mmol/L Potassium 3.9 (3.5-5.1) mmol/L Chloride 112 H (98-107) mmol/L Carbon Dioxide 24 (21-32) mmol/L Anion Gap 5 (3-11) BUN 12 (6-23) mg/dl Creatinine 1.34 H (0.6-1.2) mg/dl Est Cr Clr Drug Dosing Not Reportable Est GFR ( Amer) 49.1 ml/min Est GFR (Non-Af Amer) 42.4 ml/min BUN/Creatinine Ratio 9.0 L (10-20) Glucose 86 (70-99(Fasting)) mg/dl Calcium 11.3 H (8.6-10.3) mg/dl Ionized Calcium 1.56 H (1.12-1.32) mmol/L Phosphorus 2.2 L (2.5-4.9) mg/dl Magnesium 2.2 (1.7-2.4) mg/dl Iron 120 (35-150) mcg/dl TIBC 328 (250-450) mcg/dl Unsaturated IBC 208 (155-355) mcg/dl Transferrin % Sat 37 (15-50) % Ferritin 303.5 (8-388) ng/ml Total Bilirubin 0.3 (0.2-1.0) mg/dl AST 27 (13-39) U/L ALT 16 (7-52) U/L Alkaline Phosphatase 60 (34-104) U/L Total Protein 6.3 (6.0-8.3) gm/dl Total Protein (PEP) Albumin 3.9 (3.4-5.0) gm/dl Albumin (PEP) Globulin 2.4 L (2.5-4.0) gm/dl Albumin/Globulin Ratio 1.6 (0.9-2) Olhko-2-Yewpiasqb Nrnuk-2-Ehbzifjuo Qcrh-3-Vrcxtqqg Folr-1-Eanhsmov Gamma Globulins Monoclonal Peak 3 Ser Monoclonl Protein Ser Monoclonal Prot 2 PEP Interpretation 25-OH Vitamin D Total 38.1 (30-100) ng/ml TSH 3.869 (0.300-4.500) uIu/ml PTH Intact 9.3 L (12.0-88.0) pg/ml PTH Related Protein Pending Urine Color Urine Appearance (Clear) Urine pH (4.5-7.5) Ur Specific [place] (1.000-1.030) Urine Protein (Negative) Urine Glucose (UA) (Negative) Urine Ketones (Negative) Urine Blood (Negative) Urine Nitrite (Negative) Urine Bilirubin (Negative) Urine Urobilinogen (Negative) Ur Leukocyte Esterase (Negative) Nasal Screen MRSA (PCR) (Negative) Free Homeworth LC, Quant Pending Free Lambda LC, Quant Pending Free Homeworth/Lambda Ratio Pending
--- NOTE | 2023-04-19 08:52 | Nephrology Consultation ---
Date of Consultation April 19, 2023 Assessment & Plan (1) Acute kidney injury: * Baseline Cr 0.8 * BRIANNA is due to profound JAMES and hypercalcemia in the setting of ARB therapy * Stop Losartan * Creatinine has improved from 1.7 to 1.3 following IV hydration * Patient remains clinically volume contracted. Continue gentle hydration * 04/18/23 urinalysis is negative for blood, protein, LE. No microscopy performed * 04/18/[address] is negative for hydronephrosis. There is a 4 mm nonobstructing stone in inferior pole L kidney and punctate stone upper pole of R kidney (2) Hypertension: * Stop Losartan due to BRIANNA * Continue Amlodipine for BP management (3) Hypercalcemia: * Ca-citrate was stopped as outpatient * Non-PTH mediated hypercalcemia * Serum Ca improved to 10.6 (Albumin 3.9) following IV hydration, * vitamin D 38, PTH 9.3 * TSH, PTHrp, SIEP, 24 hour urine immunoelectrophoresis - pending * 04/18/23 PA & lat CXR - no nodule, mass, CHF * Continue gentle hydration as outlined above * 01/27 Mammogram negative for malignancy per patient report (4) Iron deficiency anemia: * h/o obesity s/p bariatric surgery 2009. 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 * Received IV iron at [facility] earlier this week * Hgb 7.8 today, 04/18/23 iron saturation 37%, ferritin 303 * FOBT - pending * 04/18/23 abdominal/pelvic CT - possible ulcer at gastrojejunal anastomosis * Gastroenterology plans IV PPI and EGD (5) Psoriatic arthritis: * Managed w/ Apremilast (Otezla) * Apremilast side effect can include weight loss (up to 10% body weight) (6) Seizure disorder: * Managed w/ Keppra therapy * Last seizure > 1 year ago History of Present Illness Reason for Consultation: BRIANNA, hypercalcemia, JAMES, weight loss Attending Physician: Genevieve Mckeon MD History of Present Illness Mrs. Tan is a 62 year old white female who is seen at the request of the [facility] Hospitalist Service for evaluation of BRIANNA, JAMES, hypercalcemia and weight loss. Information for the HPI is obtained from direct patient interview and review of medical records that she has provided from [facility]. Mrs. Tan reports a 25 lb unintentional weight loss and progressive fatigue over the last 4 months. She was seen by her PCP where she was found to have a drop in her Hgb from 12 to 8.6 g/dL 12/26/22 - 03/26/23. Mrs. Tan was referred to Dr. Doss ([facility]) where she was found to have iron sat 8% with ferritin 12, Cr 1.7 (baseline 0.8). IV iron was provided. Unfortunately her symptoms persisted. 04/16/23 she was admitted to [facility]. Evaluation revealed Hgb 9.5, Cr 1.78, Ca13.4. IV hydration was provided. PTH returned 7.0, vitamin D 38. Patient was discharged from [facility] 04/18/23 to attend her NPE w/ [facility] [place] [place] [facility]. At that time she denied fever, night sweats, flank pain, hematuria, foamy urine or uremic symptoms. She denied the regular use of NSAIDS or herbal supplements. She has no prior h/o BRIANNA. There is no FHx of CKD/ESKD. Mrs. Tan reports a h/o obesity managed w/ Jeremias-en-Y surgery ([facility] ~[facility]), Grave's disease s/p thyroid ablation, HTN (on ARB therapy), psoriasis, hypercholesterolemia and seizure disorder. Mrs. Tan reports 01/27 Mammogram was negative for malignancy, last colonoscopy 2018 at [facility] was negative for malignancy. Mrs. Tan is post menopausal and s/p TIKA. Allergies Allergy/AdvReac Type Severity Reaction Status Date / Time doxycycline Allergy Hives Verified 04/18/23 13:39 Home Medications Medication Instructions Recorded Confirmed Type apremilast 30 mg tablet (Otezla) 30 mg PO BID 02/09/20 04/18/23 History mecobalamin (vitamin B12) 1,000 mcg IM MONTHLY 04/22/21 04/18/23 History amlodipine 5 mg tablet 5 mg PO HS 04/18/23 04/18/23 History aspirin 81 mg tablet,delayed 81 mg PO QAM 04/18/23 04/18/23 History release (Adult Low Dose Aspirin) levetiracetam 500 mg tablet 500 mg PO BID 04/18/23 04/18/23 History (Keppra) levocetirizine 5 mg tablet 5 mg PO HS 04/18/23 04/18/23 History levothyroxine 150 mcg capsule 125 mcg PO QAM 04/18/23 04/18/23 History losartan 50 mg tablet 50 mg PO BID 04/18/23 04/18/23 History rosuvastatin 20 mg tablet 20 mg PO HS 04/18/23 04/18/23 History sulfasalazine 500 mg tablet 0.5 g PO BID 04/18/23 04/18/23 History Patient History Medical History Hypothyroid Psoriasis Seasonal allergies Hypertension Surgical History H/O abdominoplasty History of surgery dental implant H/O bilateral breast reduction surgery S/P left knee arthroscopy History of surgery bladder sling H/O gastric bypass H/O colonoscopy History of cardiac cath History of carpal tunnel surgery of left wrist History of surgery disc decompression History of cholecystectomy H/O: hysterectomy Hx of tonsillectomy Family History Brother Hypertension Heart disease Mother Hypertension Cancer Father Hypertension Stroke Cancer Heart disease Grandfather Stroke Heart disease Aunt Allergies Denies family history of Hearing loss No family history of adverse response to anesthesia No family history of bleeding disorder Asthma Social History Smoking Status: Never smoker Do You Dip or Chew Tobacco: No; Hx Alcohol Use: Yes Alcohol type: beer, wine and hard liquor Alcohol Intake Frequency Comment: Socially per new patient form Hx Substance Use: No Preferred Language: Luxembourgish Communication Ability: Effective Electric Organ Checker Required: No Beliefs That Will Affect Care: None marital status: Current Living Situation: Spouse current occupational status: employed current occupation: [employer] How many Children do You have: 2 Other Information That Helps Us Care for You: No Feels Safe at Home: Yes Safety Concerns: Feels Safe At This Time Assistive Devices: Glasses Review of Systems Constitutional: no fever and no weight loss Eyes: no problem reported Ear, Nose, Mouth, Throat: no problem reported Respiratory: no cough and no dyspnea Cardiovascular: no chest pain Gastrointestinal: no abdominal pain, no nausea, no vomiting, no diarrhea/loose stools, no blood in stools and no melena Genitourinary: no dysuria, no urinary frequency, no urinary urgency and no flank pain Integumentary: no rash Neurologic: no problem reported Physical Exam Constitutional: not in distress Eyes: PERRL, conjunctivae normal, anicteric sclerae ENMT: external ear and nose normal, oropharynx normal Neck: trachea midline, no thyromegaly Respiratory: normal respiratory effort, lungs clear to auscultation Cardiovascular: RRR, no murmur, no edema Gastrointestinal (Abdomen): normal bowel sounds, soft, nontender, no hepatosplenomegaly firm 1x1cm nodule palpable RUQ abdomen Skin: no rashes, warm and dry Neurologic: Speech / Cognition: normal speech and normal cognition Psychiatric: Affect: euthymic affect Lymphatic: no cervical or axillary lymphadenopathy no inguinal lymphadenopathy Results & Data Vital Signs (Past 12 Hours) Vital Signs Temp Pulse Pulse Resp BP BP Pulse Ox 04/19/23 08:42 62 150/89 H 04/19/23 08:05 73 202/91 H 04/19/23 07:36 36.3 C L 04/19/23 07:30 65 11 L 92 04/19/23 07:00 68 17 95 04/19/23 07:00 202/91 H 04/19/23 06:39 66 186/92 H 04/19/23 06:06 68 181/80 H 04/19/23 06:04 71 18 95 04/19/23 06:04 181/80 H 04/19/23 06:00 66 13 94 04/19/23 06:00 164/79 H 04/19/23 05:00 172/87 H 04/19/23 05:00 66 14 93 04/19/23 04:00 36.7 C 63 14 162/93 H 94 04/19/23 04:00 68 15 94 04/19/23 03:00 14 168/86 H 04/19/23 03:00 74 15 93 04/19/23 02:00 186/76 H 04/19/23 02:00 71 16 93 04/19/23 01:42 36.6 C 73 16 194/87 H 93 04/19/23 01:40 194/87 H 04/19/23 01:40 75 18 92 04/19/23 01:30 75 18 93 04/19/23 01:27 80 17 94 04/19/23 01:25 72 194/87 H 04/19/23 01:25 16 191/95 H 94 04/19/23 01:25 92 H 17 94 04/19/23 01:00 181/91 H 04/19/23 01:00 69 20 94 04/19/23 00:50 195/98 H 04/19/23 00:50 73 16 94 04/19/23 00:40 178/83 H 04/19/23 00:40 77 16 93 04/19/23 00:31 193/124 H 04/19/23 00:31 85 22 95 04/19/23 00:30 82 04/19/23 00:20 196/102 H 04/19/23 00:20 77 19 91 04/19/23 00:10 72 22 92 04/19/23 00:10 198/103 H 04/19/23 00:01 74 209/104 H 04/19/23 00:00 74 14 93 04/18/23 23:58 76 18 204/117 H 94 04/18/23 23:58 76 20 93 04/18/23 23:34 77 23 93 04/18/23 23:00 78 04/18/23 23:00 04/18/23 22:29 36.5 C 79 16 196/78 H 96 04/18/23 21:37 36.6 C 87 16 182/92 H 97 04/18/23 21:00 O2 Del Method 04/19/23 08:42 04/19/23 08:05 04/19/23 07:36 04/19/23 07:30 04/19/23 07:00 Room Air 04/19/23 07:00 04/19/23 06:39 04/19/23 06:06 04/19/23 06:04 Room Air 04/19/23 06:04 04/19/23 06:00 Room Air 04/19/23 06:00 04/19/23 05:00 04/19/23 05:00 Room Air 04/19/23 04:00 Room Air 04/19/23 04:00 04/19/23 03:00 04/19/23 03:00 Room Air 04/19/23 02:00 04/19/23 02:00 Room Air 04/19/23 01:42 Room Air 04/19/23 01:40 04/19/23 01:40 Room Air 04/19/23 01:30 04/19/23 01:27 04/19/23 01:25 04/19/23 01:25 Room Air 04/19/23 01:25 04/19/23 01:00 04/19/23 01:00 04/19/23 00:50 04/19/23 00:50 04/19/23 00:40 04/19/23 00:40 04/19/23 00:31 04/19/23 00:31 04/19/23 00:30 04/19/23 00:20 04/19/23 00:20 04/19/23 00:10 04/19/23 00:10 04/19/23 00:01 04/19/23 00:00 04/18/23 23:58 Room Air 04/18/23 23:58 04/18/23 23:34 04/18/23 23:00 04/18/23 23:00 Room Air 04/18/23 22:29 Room Air 04/18/23 21:37 Room Air 04/18/23 21:00 Room Air Laboratory Results Laboratory Results WBC 4.18 K/ul (4.8-10.8) L 04/19/23 03:38 RBC 3.64 M/uL (4.20-5.40) L 04/19/23 03:38 Hgb 7.8 g/dl (12.0-16.0) L 04/19/23 03:38 Hct 24.9 % (37.0-47.0) L 04/19/23 03:38 MCV 68.4 fL (80.0-100.0) L 04/19/23 03:38 MCH 21.4 pg (25.0-34.0) L 04/19/23 03:38 MCHC 31.3 g/dL (32.0-36.0) L 04/19/23 03:38 RDW Std Deviation 54.3 fL (36.4-46.3) H 04/19/23 03:38 RDW Coeff of Keli 22.5 % (11.5-14.5) H 04/19/23 03:38 Plt Count 193 K/uL (130-400) 04/19/23 03:38 MPV 9.5 fL (9.4-12.4) 04/19/23 03:38 Immature Gran % (Auto) 0.2 % 04/19/23 03:38 Neut % (Auto) 49.1 % 04/19/23 03:38 Lymph % (Auto) 28.7 % 04/19/23 03:38 Swift % (Auto) 15.3 % 04/19/23 03:38 Eos % (Auto) 5.7 % 04/19/23 03:38 Baso % (Auto) 1.0 % 04/19/23 03:38 Reticulocyte % (Auto) 1.42 % (0.50-2.00) 04/18/23 16:46 Neut # (Auto) 2.05 K/uL (1.40-6.50) 04/19/23 03:38 Lymph # (Auto) 1.20 K/uL (1.20-3.40) 04/19/23 03:38 Swift # (Auto) 0.64 K/uL (0.11-0.59) H 04/19/23 03:38 Eos # (Auto) 0.24 K/uL (0.00-0.50) 04/19/23 03:38 Baso # (Auto) 0.04 K/uL (0.00-0.20) 04/19/23 03:38 Reticulocyte # 0.060 10^6/uL (0.020-0.100) 04/18/23 16:46 Immature Gran # (Auto) 0.01 K/uL (0.01-0.20) 04/19/23 03:38 Anisocytosis Present 04/19/23 03:38 Microcytosis Present 04/19/23 03:38 Sodium 142 mmol/L (136-145) 04/19/23 03:38 Potassium 3.5 mmol/L (3.5-5.1) 04/19/23 03:38 Chloride 111 mmol/L (98-107) H 04/19/23 03:38 Carbon Dioxide 26 mmol/L (21-32) 04/19/23 03:38 Anion Gap 5 (3-11) 04/19/23 03:38 BUN 10 mg/dl (6-23) 04/19/23 03:38 Creatinine 1.31 mg/dl (0.6-1.2) H 04/19/23 03:38 Est Cr Clr Drug Dosing 43.3 ml/min 04/19/23 03:38 Est GFR ( Amer) 50.4 ml/min 04/19/23 03:38 Est GFR (Non-Af Amer) 43.5 ml/min 04/19/23 03:38 BUN/Creatinine Ratio 7.6 (10-20) L 04/19/23 03:38 Glucose 82 mg/dl (70-99(Fasting)) 04/19/23 03:38 Calcium 10.6 mg/dl (8.6-10.3) H 04/19/23 03:38 Ionized Calcium 1.56 mmol/L (1.12-1.32) H 04/18/23 16:46 Phosphorus 2.7 mg/dl (2.5-4.9) 04/19/23 03:38 Magnesium 2.0 mg/dl (1.7-2.4) 04/19/23 03:38 Iron 120 mcg/dl (35-150) 04/18/23 16:46 TIBC 328 mcg/dl (250-450) 04/18/23 16:46 Unsaturated IBC 208 mcg/dl (155-355) 04/18/23 16:46 Transferrin % Sat 37 % (15-50) 04/18/23 16:46 Ferritin 303.5 ng/ml (8-388) 04/18/23 16:46 Total Bilirubin 0.3 mg/dl (0.2-1.0) 04/18/23 16:46 AST 27 U/L (13-39) 04/18/23 16:46 ALT 16 U/L (7-52) 04/18/23 16:46 Alkaline Phosphatase 60 U/L (34-104) 04/18/23 16:46 Total Protein 6.3 gm/dl (6.0-8.3) 04/18/23 16:46 Albumin 3.9 gm/dl (3.4-5.0) 04/18/23 16:46 Globulin 2.4 gm/dl (2.5-4.0) L 04/18/23 16:46 Albumin/Globulin Ratio 1.6 (0.9-2) 04/18/23 16:46 25-OH Vitamin D Total 38.1 ng/ml (30-100) 04/18/23 16:46 TSH 3.869 uIu/ml (0.300-4.500) 04/18/23 16:46 PTH Intact 9.3 pg/ml (12.0-88.0) L 04/18/23 16:46 Urine Color Yellow 04/18/23 17:25 Urine Appearance Clear (Clear) 04/18/23 17:25 Urine pH 6.0 (4.5-7.5) 04/18/23 17:25 Ur Specific [place] 1.010 (1.000-1.030) 04/18/23 17:25 Urine Protein Negative (Negative) 04/18/23 17:25 Urine Glucose (UA) Negative (Negative) 04/18/23 17: Urine Ketones Negative (Negative) 04/18/23 17:25 Urine Blood Negative (Negative) 04/18/23 17:25 Urine Nitrite Negative (Negative) 04/18/23 17:25 Urine Bilirubin Negative (Negative) 04/18/23 17:25 Urine Urobilinogen Negative (Negative) 04/18/23 17:25 Ur Leukocyte Esterase Negative (Negative) 04/18/23 17:25 Nasal Screen MRSA (PCR) Negative (Negative) 04/18/23 Unknown Impressions Chest X-Ray 04/18/23 16:32 XR chest 2V PA/lateral HISTORY: 62 years-old Female hypercalcemia assess for nodule, mass acute hypercalcemia COMPARISON: None TECHNIQUE: PA and lateral views of the chest FINDINGS: Cardiac silhouette is upper limits of normal in size. A cardiac loop recorder device is noted. Mild diffuse reticular interstitial coarsening. No pneumothorax, pleural effusion or airspace consolidation. The bones appear grossly intact. IMPRESSION: 1. No air space consolidation typical for pneumonia. 2. Mild diffuse interstitial coarsening, possibly chronic. ACT 112: Negative or not required by law. The above report was generated using voice recognition software. It may contain grammatical, syntax or spelling errors. Electronically signed by: Jonah Babb M.D. 04/18/2023 6:04 PM Venous Doppler Study 04/18/23 17:40 Exam(s): US VENOUS BILATERAL LOWER EXTREMITIES EXAM: US Duplex Bilateral Lower Extremities Veins CLINICAL HISTORY: leg swelling, possible malignancy, dvt r/o. TECHNIQUE: Real-time duplex ultrasound scan of the bilateral lower extremity veins integrating B-mode two-dimensional vascular structure, Doppler spectral analysis, color flow Doppler imaging and compression. COMPARISON: No relevant prior studies available. FINDINGS: Right deep veins: Unremarkable. No DVT in the right common femoral, femoral, proximal deep femoral or popliteal veins. The veins demonstrate normal color flow, are normally compressible, with normal phasic flow and/or augmentation response. The interrogated calf veins are patent. Right superficial veins: Unremarkable. No thrombus in the saphenofemoral junction. Left deep veins: Unremarkable. No DVT in the left common femoral, femoral, proximal deep femoral or popliteal veins. The veins demonstrate normal color flow, are normally compressible, with normal phasic flow and/or augmentation response. The interrogated calf veins are patent. Left superficial veins: Unremarkable. No thrombus in the saphenofemoral junction. Soft tissues: No acute findings. No popliteal cyst. IMPRESSION: No evidence for deep vein thrombosis involving the bilateral lower extremities. Electronically signed by: Michael Varghese MD 04/18/23 21:46 PM Abdomen/Pelvis CT 04/18/23 21:04 Exam(s): CT ABDOMEN + PELVIS With Contrast Oral - High Density Amt: 30 ml gastro EXAM: CT Abdomen and Pelvis With Intravenous Contrast CLINICAL HISTORY: r/o r-en-y anastomotic leak. TECHNIQUE: Axial computed tomography images of the abdomen and pelvis with intravenous contrast. CTDI is 17.2 mGy and DLP is 835.07 mGy-cm. Automated exposure control was utilized for the study. A dose lowering technique was utilized adhering to the principles of ALARA. CONTRAST: Patient received 30 ml gastro of Oral - High Density contrast COMPARISON: Noncontrast CT abdomen and pelvis dated 04/18/2023 FINDINGS: Lung bases: Unremarkable. No mass. No consolidation. ABDOMEN: Liver: Unremarkable. No mass. Gallbladder and bile ducts: Cholecystectomy. No ductal dilation. Pancreas: Unremarkable. No mass. No ductal dilation. Spleen: Unremarkable. No splenomegaly. Adrenals: Unremarkable. No mass. Kidneys and ureters: Subcentimeter punctate nonobstructive nephrolithiasis in the inferior pole of the left kidney. The unenhanced kidneys are otherwise unremarkable. No hydronephrosis or ureteral stones. Stomach and bowel: Stable postsurgical changes consistent with gastric bypass. No evidence for bowel obstruction with oral contrast noted in the mid to small bowel with extension to the cecum and proximal ascending colon. No evidence for contrast leakage. Stable postsurgical changes involving small bowel loops in the left abdomen. No mucosal thickening. PELVIS: Appendix: A normal caliber appendix is noted along the posterior medial aspect of the cecum. Bladder: Unremarkable. No mass. Reproductive: Status post hysterectomy. ABDOMEN and PELVIS: Intraperitoneal space: Unremarkable. No free air. No significant fluid collection. Bones/joints: No acute fracture. No dislocation. Soft tissues: The overlying soft tissues are stable in appearance. No hernia. Vasculature: Unremarkable. No abdominal aortic aneurysm. Lymph nodes: Unremarkable. No enlarged lymph nodes. IMPRESSION: Stable postsurgical changes consistent with gastric bypass. No evidence for bowel obstruction with oral contrast noted in the mid to small bowel with extension to the cecum and proximal ascending colon. No evidence for contrast leakage. No abscess or pneumoperitoneum. Electronically signed by: Michael Varghese MD 04/19/23 00:49 AM PG Care Time/CCT Total # of Minutes Spent Total Time Spent with Patient: Total time spent is greater than 50% in coordination of care (as documented) at patient's floor/unit and/or counseling patient: Coding Level of Care Code 62153 IN/OBS CONSULT LVL 5,80M Diagnoses Acute kidney injury N17.9 Hypertension I10 Hypercalcemia E83.52 Iron deficiency anemia D50.9 Psoriatic arthritis L40.50 Seizure disorder G40.909
[2023-04-19] MEDS: amLODIPine BESYLATE 5 MG TAB PO SCH (08:54)
[2023-04-19] MEDS: levETIRAcetam 500 MG TAB PO SCH (08:54)
[2023-04-19] MEDS ORDERED: LOSARTAN POTASSIUM 50 MG TAB PO SCH (09:00)
[2023-04-19] MEDS ORDERED: ASPIRIN 81 MG ECTAB PO SCH (09:00)
--- NOTE | 2023-04-19 11:17 | History & Physical Bridge Note ---
Date of Service April 19, 2023 History & Physical Bridge Note I have examined the patient, reviewed the History & Physical and in the interval since the performance of the History & Physical I have noted the following changes of clinical significance: no changes noted Supervising Physician Co-Signing Physician Notes EGD for evaluation of abnl imaging.
--- NOTE | 2023-04-19 11:28 | Anesthesiology Consultation ---
Date of Service April 19, 2023 Assessment & Plan Consults Requested medical & cardiac Pulmonary History Surgery Operation Date: 04/19/23 16:30 Proposed Procedures p Esophagogastroduodenoscopy Dr. Alessia Aggarwal MD Height/Weight Height: 5 ft 7 in Weight: 69.9 kg Allergies Allergy/AdvReac Type Severity Reaction Status Date / Time doxycycline Allergy Hives Verified 04/18/23 13:39 Medications Home Medications Medication Instructions Recorded Confirmed Last Taken apremilast 30 mg tablet (Otezla) 30 mg PO BID 02/09/20 04/18/23 04/18/23 mecobalamin (vitamin B12) 1,000 mcg IM MONTHLY 04/22/21 04/18/23 04/06/23 amlodipine 5 mg tablet 5 mg PO HS 04/18/23 04/18/23 Unknown aspirin 81 mg tablet,delayed 81 mg PO QAM 04/18/23 04/18/23 04/18/23 release (Adult Low Dose Aspirin) levetiracetam 500 mg tablet 500 mg PO BID 04/18/23 04/18/23 04/18/23 (Keppra) levocetirizine 5 mg tablet 5 mg PO HS 04/18/23 04/18/23 Unknown levothyroxine 150 mcg capsule 125 mcg PO QAM 04/18/23 04/18/23 04/18/23 losartan 50 mg tablet 50 mg PO BID 04/18/23 04/18/23 04/18/23 rosuvastatin 20 mg tablet 20 mg PO HS 04/18/23 04/18/23 Unknown sulfasalazine 500 mg tablet 0.5 g PO BID 04/18/23 04/18/23 04/18/23 Active Medications Generic Name Dose Route Start Last Admin Trade Name Freq PRN Reason Stop Dose Admin Amlodipine Besylate 5 mg 04/18/23 21:00 04/18/23 21:23 Amlodipine Besylate 5 Mg Tab PO 05/18/23 20:59 Not Given HS [facility] Amlodipine Besylate 10 mg 04/19/23 09:00 04/19/23 08:54 Amlodipine Besylate 5 Mg Tab PO 05/19/23 08:59 10 mg QAM [facility] Administration Cetirizine HCl 10 mg 04/18/23 21:00 04/18/23 21:23 Cetirizine Hcl 10 Mg Tablet PO 05/18/23 20:59 Not Given HS [facility] Hydromorphone HCl 0.5 mg 04/19/23 00:16 04/19/23 07:23 Hydromorphone Inj 0.5 Mg/0.5 Ml Syr IV 05/03/23 00:15 0.5 mg Q6H PRN Administration Pain 8+ Parenteral Electrolytes 1,000 mls @ 80 mls/hr 04/18/23 21:00 04/18/23 21:02 Plasma-Lyte A Ph 7.4 IV 05/18/23 20:59 80 mls/hr .[id number] [facility] Administration Pantoprazole Sodium 40 mg/ 10 mls @ 5 mls/min 04/18/23 21:15 04/19/23 08:12 Syringe IV 05/18/23 21:14 5 mls/min BID [facility] Administration Acetaminophen 1,000 mg in 100 mls @ 400 mls/hr 04/19/23 00:16 04/19/23 01:15 Ofirmev IV 04/22/23 00:15 Infused Q8H PRN Infusion Pain or Agitation Labetalol HCl 10 mg 04/19/23 07:56 04/19/23 08:05 Labetalol Hcl Iv 5 Mg/Ml 20ml IV 05/18/23 21:18 10 mg Q6H PRN Administration SBP > 180 Levetiracetam 500 mg 04/18/23 21:00 04/18/23 21:23 Levetiracetam 500 Mg Tab PO 05/18/23 20:59 Not Given BID [facility] Levetiracetam 500 mg 04/19/23 09:00 04/19/23 08:54 Levetiracetam 500 Mg Tab PO 05/19/23 08:59 500 mg BID [facility] Administration Metoprolol Tartrate 25 mg 04/18/23 21:00 04/18/23 21:24 Metoprolol Tartrate 25 Mg Tab PO 05/18/23 20:59 Not Given BID [facility] Rosuvastatin Calcium 20 mg 04/18/23 21:00 04/18/23 21:24 Rosuvastatin Calcium 20 Mg Tab PO 05/18/23 20:59 Not Given HS [facility] Sucralfate 1 gm 04/19/23 00:00 04/19/23 08:12 Sucralfate 1 Gm/10 Ml Udc PO 05/19/23 00:00 Not Given QID [facility] Sulfasalazine 500 mg 04/18/23 21:00 04/18/23 21:24 Sulfasalazine 500 Mg Tablet PO 05/18/23 20:59 Not Given BID [facility] NPO Date Last Intake of Fluids: 04/19/23 Time Last Intake of Fluids: 09:00 Date Last Intake of Solids: 04/18/23 Time Last Intake of Solids: 12:00 Past Medical History Medical History Hypothyroid Psoriasis Seasonal allergies Hypertension Past Family History Family History Brother Hypertension Heart disease Mother Hypertension Cancer Father Hypertension Stroke Cancer Heart disease Grandfather Stroke Heart disease Aunt Allergies Denies family history of Hearing loss No family history of adverse response to anesthesia No family history of bleeding disorder Asthma Past Surgical History Surgical History H/O abdominoplasty History of surgery dental implant H/O bilateral breast reduction surgery S/P left knee arthroscopy History of surgery bladder sling H/O gastric bypass H/O colonoscopy History of cardiac cath History of carpal tunnel surgery of left wrist History of surgery disc decompression History of cholecystectomy H/O: hysterectomy Hx of tonsillectomy Social History Smoking Status: Never smoker Do You Dip or Chew Tobacco: No Hx Alcohol Use: Yes Alcohol type: beer, wine and hard liquor alcohol intake frequency: holidays/special occasions only Hx Substance Use: No substance use type: does not use Physical Exam Vital Signs Last Vital Signs Temp 36.3 C L 04/19/23 11:10 Pulse 78 04/19/23 11:10 Resp 16 04/19/23 11:10 BP 189/91 H 04/19/23 11:10 Pulse Ox 93 04/19/23 11:10 O2 Del Method Room Air 04/19/23 11:10 Testing Laboratory Results 04/19/23 03:38 04/19/23 03:38 Urine Color Yellow 04/18/23 17:25 Urine Appearance Clear (Clear) 04/18/23 17:25 Urine pH 6.0 (4.5-7.5) 04/18/23 17:25 Ur Specific [place] 1.010 (1.000-1.030) 04/18/23 17:25 Urine Protein Negative (Negative) 04/18/23 17:25 Urine Glucose (UA) Negative (Negative) 04/18/23 17:25 Urine Ketones Negative (Negative) 04/18/23 17:25 Urine Nitrite Negative (Negative) 04/18/23 17:25 Ur Leukocyte Esterase Negative (Negative) 04/18/23 17:25
--- NOTE | 2023-04-19 11:45 | GI REPORT ---
Patient Name: Natasha Tan Procedure Date: 04/19/2023 11:35 AM Date of : 1960 Admit Type: Inpatient Age: 62 Gender: Female Attending MD: Sherin Aggarwal M.d., Procedure: Upper GI endoscopy Providers: Sherin Aggarwal M.d. Referring MD: Pastor Saleh Indications: Anemia Medicines: See the Anesthesia note for documentation of the administered medications Complications: No immediate complications. Estimated Blood Loss: Estimated blood loss: none. Procedure: Pre-Anesthesia Assessment: - Patient identification and proposed procedure were verified prior to the procedure by the physician, the nurse and the anesthesiologist. The procedure was verified in the pre-procedure area. - Prior to the procedure, a History and Physical was performed, and patient medications, allergies and sensitivities were reviewed. The patient's tolerance of previous anesthesia was reviewed. - The risks and benefits of the procedure and the sedation options and risks were discussed with the patient. All questions were answered and informed consent was obtained. After obtaining informed consent, the endoscope was passed under direct vision. Throughout the procedure, the patient's blood pressure, pulse, and oxygen saturations were monitored continuously. The Endoscope was introduced through the mouth and advanced to the jejunum. The upper GI endoscopy was accomplished without difficulty. The patient tolerated the procedure well. Findings: The examined esophagus appeared normal. The Z-line appeared regular. Evidence of a gastric bypass was found. A gastric pouch was found - one mild erythematous area was noted. The gastrojejunal anastomosis was characterized by healthy appearing mucosa. The examined jejunum appeared normal. Impression: - Normal esophagus. - Z-line regular. - Gastric bypass. One mildly erythematous area was noted. Gastrojejunal anastomosis characterized by healthy appearing mucosa. - Normal examined jejunum. Recommendation: - Return to the floor. - Consider PPI and Carafate daily. Smitha Zamudio M.d. 04/19/2023 11:45:35 AM This report has been signed electronically. Note Initiated On: 04/19/2023 11:35 AM Number of Addenda: 0 I attest to the content of the Intraoperative Record and orders documented therein, exceptions below {[id number]}
--- NOTE | 2023-04-19 11:46 | Communication Note ---
Date of Service: April 19, 2023 EGD done with findings of a slightly erythematous area in the gastric pouch. Consider carafate for 28 days and ppi daily. Avoid nsaid's, smoking. outpatient colon with her regular providers in [place] and or [facility].
[2023-04-19] MEDS: PROPOFOL IV EMULSION 10 MG/ML 20 ML VIAL IV ONE (12:53)
[2023-04-19] MEDS: LIDOCAINE 2% 2 ML VIAL/AMP(20MG/ML) INFIL ONE (12:53)
--- NOTE | 2023-04-19 13:34 | Surgery Progress Note ---
Date of Service April 19, 2023 Assessment & Plan (1) Hypercalcemia: Plan: Patient admitted with hypercalcemia. A CT for workup was obtained that revealed question of anastomotic dehiscence vs ulcer and repeat w/ contrast showed no extravasation or acute issues w/ RYGB Today GI was consulted and performed an EGD that revealed some mild gastric eyrthema of the pouch. started on ppi and carafate WBC 4, hbg 7.8. Hypertensive No belly pain, nausea/vomiting. Non tender From our standpoint no contraindications for a diet if okay w/ GI We have no plans for surgical intervention. Outpt follow up with her [facility] We will follow from periphery, please call if any questions/concerns (2) H/O gastric bypass: Admission and Anticipated Discharge Date Admission Date: April 18, 2023 Supervising Physician Co-Signing Physician Notes Patient seen and examined, labs and imaging reviewed, agree with above. During workup for hypercalcemia question of anastomotic disruption at GJ from prior Jeremias-en-Y gastric bypass. No abdominal symptoms. CT with oral contrast showed no evidence of extravasation or leak. EGD today showed small erythema, possible early marginal ulceration. Abdomen soft, nontender, nondistended. No indication for acute surgical intervention. Surgery will sign off, call with questions or concerns. Recommend avoidance of NSAIDs, tobacco, and alcohol. Recommend PPI and consider Carafate. Follow-up with bariatric surgeon as an outpatient. Subjective Patient feeling well from abdominal standpoint. Denies pain or nausea. Been passing flatus and BM prior to coming in. Has a little bit of a headache. Thirsty and hungry. Physical Exam Physical Exam: awake/alert, no distress Respiratory: normal respiratory effort Gastrointestinal (Abdomen): Inspection/Auscultation: abdomen not distended Percussion/Palpation: abdomen soft; abdomen nontender Results & Data Vital Signs (Past 12 Hours) Vital Signs Temp Pulse Pulse Resp BP BP Pulse Ox 04/19/23 12:38 77 18 97 04/19/23 12:38 192/88 H 04/19/23 12:15 71 16 165/63 H 95 04/19/23 12:13 97.7 F 04/19/23 12:00 66 16 155/63 H 94 04/19/23 11:45 71 14 134/60 94 04/19/23 11:10 97.3 F L 78 16 189/91 H 93 04/19/23 08:42 62 150/89 H 04/19/23 08:05 73 202/91 H 04/19/23 07:36 97.3 F L 04/19/23 07:30 65 11 L 92 04/19/23 07:00 68 17 95 04/19/23 07:00 202/91 H 04/19/23 06:39 66 186/92 H 04/19/23 06:06 68 181/80 H 04/19/23 06:04 71 18 95 04/19/23 06:04 181/80 H 04/19/23 06:00 66 13 94 04/19/23 06:00 164/79 H 04/19/23 05:00 172/87 H 04/19/23 05:00 66 14 93 04/19/23 04:00 98.1 F 63 14 162/93 H 94 04/19/23 04:00 68 15 94 04/19/23 03:00 14 168/86 H 04/19/23 03:00 74 15 93 04/19/23 02:00 186/76 H 04/19/23 02:00 71 16 93 04/19/23 01:42 97.9 F 73 16 194/87 H 93 04/19/23 01:40 194/87 H 04/19/23 01:40 75 18 92 O2 Del Method 04/19/23 12:38 04/19/23 12:38 04/19/23 12:15 Room Air 04/19/23 12:13 04/19/23 12:00 Room Air 04/19/23 11:45 Room Air 04/19/23 11:10 Room Air 04/19/23 08:42 04/19/23 08:05 04/19/23 07:36 04/19/23 07:30 04/19/23 07:00 Room Air 04/19/23 07:00 04/19/23 06:39 04/19/23 06:06 04/19/23 06:04 Room Air 04/19/23 06:04 04/19/23 06:00 Room Air 04/19/23 06:00 04/19/23 05:00 04/19/23 05:00 Room Air 04/19/23 04:00 Room Air 04/19/23 04:00 04/19/23 03:00 04/19/23 03:00 Room Air 04/19/23 02:00 04/19/23 02:00 Room Air 04/19/23 01:42 Room Air 04/19/23 01:40 04/19/23 01:40 Room Air PG Care Time/CCT Total # of Minutes Spent Total Time Spent with Patient: Total time spent is greater than 50% in coordination of care (as documented) at patient's floor/unit and/or counseling patient: Coding Level of Care Code 42322 SUB INP/OBS CARE 03/01MIN Diagnoses Hypercalcemia E83.52 H/O gastric bypass Z98.84
--- NOTE | 2023-04-19 15:12 | Anesthesiology Progress Note ---
Date of Service April 19, 2023 Anesthesia Post Procedure Vital Signs Vital Signs: Temp Pulse Pulse Resp BP BP Pulse Ox 04/19/23 12:38 77 18 97 04/19/23 12:38 192/88 H 04/19/23 12:15 71 16 165/63 H 95 04/19/23 12:13 36.5 C 04/19/23 12:00 66 16 155/63 H 94 04/19/23 11:45 71 14 134/60 94 04/19/23 11:10 36.3 C L 78 16 189/91 H 93 04/19/23 08:42 62 150/89 H 04/19/23 08:05 73 202/91 H 04/19/23 07:36 36.3 C L 04/19/23 07:30 65 11 L 92 04/19/23 07:00 68 17 95 04/19/23 07:00 202/91 H 04/19/23 06:39 66 186/92 H 04/19/23 06:06 68 181/80 H 04/19/23 06:04 71 18 95 04/19/23 06:04 181/80 H 04/19/23 06:00 66 13 94 04/19/23 06:00 164/79 H 04/19/23 05:00 172/87 H 04/19/23 05:00 66 14 93 04/19/23 04:00 36.7 C 63 14 162/93 H 94 04/19/23 04:00 68 15 94 04/19/23 03:00 14 168/86 H 04/19/23 03:00 74 15 93 04/19/23 02:00 186/76 H 04/19/23 02:00 71 16 93 04/19/23 01:42 36.6 C 73 16 194/87 H 93 04/19/23 01:40 194/87 H 04/19/23 01:40 75 18 92 04/19/23 01:30 75 18 93 04/19/23 01:27 80 17 94 04/19/23 01:25 72 194/87 H 04/19/23 01:25 16 191/95 H 94 04/19/23 01:25 92 H 17 94 04/19/23 01:00 181/91 H 04/19/23 01:00 69 20 94 04/19/23 00:50 195/98 H 04/19/23 00:50 73 16 94 04/19/23 00:40 178/83 H 04/19/23 00:40 77 16 93 04/19/23 00:31 193/124 H 04/19/23 00:31 85 22 95 04/19/23 00:30 82 04/19/23 00:20 196/102 H 04/19/23 00:20 77 19 91 04/19/23 00:10 72 22 92 04/19/23 00:10 198/103 H 04/19/23 00:01 74 209/104 H 04/19/23 00:00 74 14 93 04/18/23 23:58 76 18 204/117 H 94 04/18/23 23:58 76 20 93 04/18/23 23:34 77 23 93 04/18/23 23:00 78 04/18/23 23:00 04/18/23 22:29 36.5 C 79 16 196/78 H 96 04/18/23 21:37 36.6 C 87 16 182/92 H 97 04/18/23 21:00 04/18/23 16:20 36.3 C L 89 16 179/80 H 96 O2 Del Method 04/19/23 12:38 04/19/23 12:38 04/19/23 12:15 Room Air 04/19/23 12:13 04/19/23 12:00 Room Air 04/19/23 11:45 Room Air 04/19/23 11:10 Room Air 04/19/23 08:42 04/19/23 08:05 04/19/23 07:36 04/19/23 07:30 04/19/23 07:00 Room Air 04/19/23 07:00 04/19/23 06:39 04/19/23 06:06 04/19/23 06:04 Room Air 04/19/23 06:04 04/19/23 06:00 Room Air 04/19/23 06:00 04/19/23 05:00 04/19/23 05:00 Room Air 04/19/23 04:00 Room Air 04/19/23 04:00 04/19/23 03:00 04/19/23 03:00 Room Air 04/19/23 02:00 04/19/23 02:00 Room Air 04/19/23 01:42 Room Air 04/19/23 01:40 04/19/23 01:40 Room Air 04/19/23 01:30 04/19/23 01:27 04/19/23 01:25 04/19/23 01:25 Room Air 04/19/23 01:25 04/19/23 01:00 04/19/23 01:00 04/19/23 00:50 04/19/23 00:50 04/19/23 00:40 04/19/23 00:40 04/19/23 00:31 04/19/23 00:31 04/19/23 00:30 04/19/23 00:20 04/19/23 00:20 04/19/23 00:10 04/19/23 00:10 04/19/23 00:01 04/19/23 00:00 04/18/23 23:58 Room Air 04/18/23 23:58 04/18/23 23:34 04/18/23 23:00 04/18/23 23:00 Room Air 04/18/23 22:29 Room Air 04/18/23 21:37 Room Air 04/18/23 21:00 Room Air 04/18/23 16:20 Room Air Pain Intensity Bilateral Head: Pain Intensity: 8 Transfer of Care Handoff Completed per policy Notes Mental Status: alert / awake / arousable and participated in evaluation Nausea / Vomiting: adequately controlled Pain: adequately controlled Airway Patency, RR, SpO2: stable & adequate BP & HR: stable & adequate Hydration State: stable & adequate Anesthetic Complications: no major complications apparent and Pt Satisfied with anesthetic care
--- NOTE | 2023-04-19 15:40 | XCELERA ---
[id number] \\[id number]
[2023-04-19] MEDS: carvediloL 6.25 MG TAB PO SCH (16:56)
--- NOTE | 2023-04-19 17:16 | Hospitalist Progress Note ---
Date of Service April 19, 2023 Assessment & Plan (1) Hypercalcemia: Plan: Hypercalcemia, weight loss - OSH PTH normal, repeat pending Vitamin D pending -PTHRP ordered SPEP, UPEP, serum free chain analysis ordered and pending CTA/P With gastric pouch contents? Blood products with ulcer versus anastomotic leak - if SPEP/UPEP abnormal/M-protein pending --> Add LDH, [id number], peripheral smear, and onc consult History of Nonischemic HF - Records from [place] requested - 2007 cardiac cath --> no stents. Pt was told ?viral cause of EF 40%. Repeat EF 55% - +Palpitations. Has a loop recorder. Interrogation pending - +bilateral trace ankle edema. Repeat echo ordered. - EKG: nsr, no ischemic changes on admit (2) H/O gastric bypass: Plan: History of Jeremias-en-Y bypass bariatric surgery 2008 with Michael Ritter -CTA/P "There is wall thickening with adjacent inflammatory stranding at the gastrojejunal anastomosis and there is also debris present within the excluded stomach. Follow-up with bariatric surgery recommended in order to exclude anastomotic dehiscence." -Discussed with - Discussed w Dr. Ritter At [facility] surgical associates. Reviewed imaging findings. Suspect that this is likely ulcerative blood rather than dehiscence especially with her stable clinical appearance. Recommend a oral only upper GI CT study to evaluate for anastomotic dehiscence. If dehiscence is seen then okay for transfer emergently to [facility]. If no dehiscence is noted suspect that this is a bleed, trying to treat with PPI and Carafate at this time. If she is hemodynamically stable then she can follow-up in their office for an outpatient EGD and evaluation. If she has a prolonged hospital course reasonable to transfer not emergently to [facility] at that time but would prefer this to be done to medical service with surgical consultation given her other renal, and hypercalcemia concerns. If nonemergent transfer is desired and patient is anticipated to be in the hospital for at least several days, reach out to med call [facility] to medical service tomorrow and can notify that this was discussed and okay with Dr. Ritter At time of admission and on reassessment abdomen is benign, she is afebrile, and without a leukocytosis. Serial exams, signed out to overnight provider for monitoring (3) Hypertension: Plan: on Amlodipine, started Coreg, Losartan stopped due to BRIANNA (4) Psoriatic arthritis: Plan: Psoriatic Arthritis - Continue home meds (5) Nonischemic cardiomyopathy: Plan: History of Nonischemic HF - Records from [place] requested - 2007 cardiac cath --> no stents. Pt was told ?viral cause of EF 40%. Repeat EF 55% - +Palpitations. Has a loop recorder. Interrogation pending - +bilateral trace ankle edema. Repeat echo ordered. - EKG: nsr, no ischemic changes on admit (6) Seizure: Plan: Hx Seizure, - Keppra 500mg BID, switch to IV while n.p.o. - No recent seizures - Ativan radiation protection specialist if needed (7) Anemia: Plan: no evidence of iron deficiency anemia, obtain b12, folate levels monitor CBC Plan DVT prophylaxis: SCDs, pharmacal prophylaxis held while evaluating for potential ulcerative bleed Disposition: Medical surgical CODE STATUS: Full code Diet: N.p.o. Admission and Anticipated Discharge Date Admission Date: April 18, 2023 Subjective Patient feeling well from abdominal standpoint. Denies pain or nausea. Been passing flatus and BM prior to coming in. Has a little bit of a headache. Thirsty and hungry. Review of Systems Review of Systems: All systems reviewed & are unremarkable except as noted in Subjective Physical Exam Physical Exam: Head is atraumatic normocephalic Neck supple, no JVD Lungs clear to auscultation bilaterally Heart sounds regular , no murmurs gallops or rubs appreciated Abdomen soft, nontender, nondistended , bowel sounds present Extremities no clubbing, no cyanosis neuro alert, awake, oriented times 3 Results & Data Results & Data Vital Signs (Past 12 Hours) Vital Signs Temp Pulse Pulse Resp BP BP BP 04/19/23 16:57 36.5 C 83 18 189/103 H 04/19/23 12:38 77 18 04/19/23 12:38 192/88 H 04/19/23 12:15 71 16 165/63 H 04/19/23 12:13 36.5 C 04/19/23 12:00 66 16 155/63 H 04/19/23 11:45 71 14 134/60 04/19/23 11:10 36.3 C L 78 16 189/91 H 04/19/23 08:42 62 150/89 H 04/19/23 08:05 73 202/91 H 04/19/23 07:36 36.3 C L 04/19/23 07:30 65 11 L 04/19/23 07:00 68 17 04/19/23 07:00 202/91 H 04/19/23 06:39 66 186/92 H 04/19/23 06:06 68 181/80 H 04/19/23 06:04 71 18 04/19/23 06:04 181/80 H 04/19/23 06:00 66 13 04/19/23 06:00 164/79 H Pulse Ox O2 Del Method 04/19/23 16:57 97 Room Air 04/19/23 12:38 97 04/19/23 12:38 04/19/23 12:15 95 Room Air 04/19/23 12:13 04/19/23 12:00 94 Room Air 04/19/23 11:45 94 Room Air 04/19/23 11:10 93 Room Air 04/19/23 08:42 04/19/23 08:05 04/19/23 07:36 04/19/23 07:30 92 04/19/23 07:00 95 Room Air 04/19/23 07:00 04/19/23 06:39 04/19/23 06:06 04/19/23 06:04 95 Room Air 04/19/23 06:04 04/19/23 06:00 94 Room Air 04/19/23 06:00 PG Care Time/CCT Total # of Minutes Spent Total Time Spent with Patient: Total time spent is greater than 50% in coordination of care (as documented) at patient's floor/unit and/or counseling patient: Coding Level of Care Code 60710 SUB INP/OBS CARE 2/35MIN Diagnoses Hypercalcemia E83.52 H/O gastric bypass Z98.84 Hypertension I10 Psoriatic arthritis L40.50 Nonischemic cardiomyopathy I42.8 Seizure R56.9 Anemia D64.9
[2023-04-19] MEDS: ONDANSETRON INJ 2 MG/ML 2 ML VIAL IV PRN (17:26)
[2023-04-20 04:48] LABS: Basophils # (auto) 0.03 K/uL (0.00-0.20); Basophils % (auto) 0.7 %; Eosinophils # (auto) 0.18 K/uL (0.00-0.50); Eosinophils % (auto) 4.4 %; Hematocrit (blood only) 25.3 % (37.0-47.0); Hemoglobin 7.9 g/dl (12.0-16.0); Immature Granulocytes # (auto) 0.01 K/uL (0.01-0.20); Immature Granulocytes % (auto) 0.2 %; Lymphocytes # (auto) 1.14 K/uL (1.20-3.40); Lymphocytes % (auto) 28.1 %; Mean Corpuscular Hemoglobin 21.4 pg (25.0-34.0); Mean Corpuscular Hgb Conc 31.2 g/dL (32.0-36.0); Mean Corpuscular Volume 68.6 fL (80.0-100.0); Monocytes # (auto) 0.67 K/uL (0.11-0.59); Monocytes % (auto) 16.5 %; Neutrophils # (auto) 2.03 K/uL (1.40-6.50); Neutrophils % (auto) 50.1 %; RDW Coefficient of Variation 22.8 % (11.5-14.5); RDW Standard Deviation 54.7 fL (36.4-46.3); Red Blood Count 3.69 M/uL (4.20-5.40); White Blood Count 4.06 K/ul (4.8-10.8)
[2023-04-20 04:58] LABS: BUN Creatinine Ratio 8.4 (10-20); Creatinine Clr Calc Pharmacy 43.3 ml/min; Est GFR (African American) 50.4 ml/min; Est GFR (Non-African American) 43.5 ml/min; Potassium 3.2 mmol/L (3.5-5.1)
[2023-04-20] MEDS: LEVOTHYROXINE SODIUM 125 MCG TABLET PO SCH (05:29)
[2023-04-20 05:46] LABS: Hypochromasia Present; Mean Platelet Volume 9.8 fL (9.4-12.4); Microcytosis Present; Platelet Count 213 K/uL (130-400)
[2023-04-20] MEDS: POTASSIUM CHLORIDE CRTAB 20 MEQ TABCR PO STA (06:26)
[2023-04-20] MEDS: POTASSIUM CHLORIDE / WTR 10 MEQ/100 ML PLCT IV SCH (06:26)
[2023-04-20] MEDS: ACETAMINOPHEN 325 MG TAB PO PRN (07:44)
--- NOTE | 2023-04-20 08:57 | Nephrology Progress Note ---
Date of Service April 20, 2023 Assessment & Plan (1) Acute kidney injury: Plan: * Baseline Cr 0.8 * BRIANNA is due to profound JAMES and hypercalcemia in the setting of ARB therapy * Stop Losartan * Creatinine has improved from 1.7 to 1.3 following IV hydration * Patient remains clinically volume contracted. Continue Plasmalyte at 80 cc/hr * 04/18/23 urinalysis is negative for blood, protein, LE. No microscopy performed * 04/18/[address] is negative for hydronephrosis. There is a 4 mm nonobstructing stone in inferior pole L kidney and punctate stone upper pole of R kidney (2) Hypertension: Plan: * Stop Losartan due to BRIANNA * Continue Amlodipine for BP management (3) Hypercalcemia: Plan: * Ca-citrate was stopped as outpatient * Non-PTH mediated hypercalcemia * Serum Ca corrected to 10.0 (Albumin 3.9) following IV hydration, * vitamin D 38, PTH 9.3 * TSH, PTHrp, [place]/Lambda free light chains, SIEP, 24 hour urine immunoelectrophoresis - pending * 04/18/23 PA & lat CXR - no nodule, mass, CHF * Continue gentle hydration as outlined above * 01/27 Mammogram negative for malignancy per patient report (4) Iron deficiency anemia: Plan: * h/o obesity s/p bariatric surgery 2009. 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 * Received IV iron at [facility] earlier this week. Was scheduled for IV iron as outpatient today. Will provide 200 mg Venofer x1 today * Hgb 7.8 today, 04/18/23 iron saturation 37%, ferritin 303 * FOBT - pending * 04/18/23 abdominal/pelvic CT - possible ulcer at gastrojejunal anastomosis * 04/19/23 EGD - normal esophagus, gastrojejunal anastomosis w/ health mucosa, normal jejunum. Continue PPI and Carafate daily * Awaiting further GI recommendations (colonoscopy?) (5) Psoriatic arthritis: Plan: * Managed w/ Apremilast (Otezla) * Apremilast side effect can include weight loss (up to 10% body weight) (6) Seizure disorder: Plan: * Managed w/ Keppra therapy * Last seizure > 1 year ago Admission and Anticipated Discharge Date Admission Date: April 18, 2023 Subjective Mrs. Tan was evaluated in her hospital room this morning. She did not tolerate dinner last evening or breakfast this morning. She reports one episode of emesis. Review of Systems Constitutional: no fever and no weight loss Eyes: no problem reported Ear, Nose, Mouth, Throat: no problem reported Respiratory: no cough and no dyspnea Cardiovascular: no chest pain Gastrointestinal: no abdominal pain, no nausea, no vomiting, no diarrhea/loose stools, no blood in stools and no melena Genitourinary: no dysuria, no urinary frequency, no urinary urgency and no flank pain Integumentary: no rash Neurologic: no problem reported Physical Exam Constitutional: not in distress Eyes: PERRL, conjunctivae normal, anicteric sclerae ENMT: external ear and nose normal, oropharynx normal Neck: trachea midline, no thyromegaly Respiratory: normal respiratory effort, lungs clear to auscultation Cardiovascular: RRR, no murmur, no edema Gastrointestinal (Abdomen): normal bowel sounds, soft, nontender, no hepatosplenomegaly Skin: no rashes, warm and dry Neurologic: Speech / Cognition: normal speech and normal cognition Psychiatric: Affect: euthymic affect Lymphatic: no cervical or axillary lymphadenopathy Results & Data Vital Signs (Past 12 Hours) Vital Signs Temp Pulse Pulse Resp BP BP Pulse Ox 04/20/23 08:09 73 04/20/23 08:03 04/20/23 07:30 37.0 C 04/20/23 07:11 79 18 92 04/20/23 07:11 159/74 H 04/20/23 04:12 37.1 C 87 19 147/62 H 92 04/20/23 00:25 78 04/20/23 00:09 36.9 C 83 18 128/55 L 94 O2 Del Method 04/20/23 08:09 04/20/23 08:03 Room Air 04/20/23 07:30 04/20/23 07:11 Room Air 04/20/23 07:11 04/20/23 04:12 Room Air 04/20/23 00:25 04/20/23 00:09 Room Air Laboratory Results 04/19/23 Echo: LVEF 40-45%, mod LVH, mild MR, normal RVSP PG Care Time/CCT Total # of Minutes Spent Total Time Spent with Patient: Total time spent is greater than 50% in coordination of care (as documented) at patient's floor/unit and/or counseling patient: Coding Level of Care Code 89565 SUB INP/OBS CARE 350MIN Diagnoses Acute kidney injury N17.9 Hypertension I10 Hypercalcemia E83.52 Iron deficiency anemia D50.9 Psoriatic arthritis L40.50 Seizure disorder G40.909
[2023-04-20] MEDS: FUROSEMIDE 20 MG TAB PO SCH (10:21)
[2023-04-20] MEDS: IRON SUCROSE 200 MG in 0.9 % SODIUM CHLORIDE 100 ML IV ONE (12:19)
--- NOTE | 2023-04-20 16:46 | Hospitalist Progress Note ---
Date of Service April 20, 2023 Assessment & Plan (1) Hypercalcemia: Plan: Hypercalcemia, weight loss - OSH PTH normal, Vitamin D pending -PTHRP ordered SPEP, UPEP, serum free chain analysis ordered and pending History of Nonischemic HF - Records from [place] requested - 2007 cardiac cath --> no stents. recent ECHO EF 40-45 % - +Palpitations. Has a loop recorder. Interrogation pending - (2) H/O gastric bypass: Plan: History of Jeremias-en-Y bypass bariatric surgery 2008 with Michael Ritter -CTA/P "There is wall thickening with adjacent inflammatory stranding at the gastrojejunal anastomosis and there is also debris present within the excluded stomach. Follow-up with bariatric surgery recommended in order to exclude anastomotic dehiscence." -Discussed with - Bibi w Dr. Ritter At [facility] surgical associates. Reviewed imaging findings. Suspect that this is likely ulcerative blood rather than dehiscence especially with her stable clinical appearance. Recommend a oral only upper GI CT study to evaluate for anastomotic dehiscence. If dehiscence is seen then okay for transfer emergently to [facility]. If no dehiscence is noted suspect that this is a bleed, trying to treat with PPI and Carafate at this time. If she is hemodynamically stable then she can follow-up in their office for an outpatient EGD and evaluation. I s/p EGD s/p EGD , no evidence of esophagitis or gastritis on PPI needs colonoscopy as outpatient (3) Hypertension: Plan: on Amlodipine, started Coreg, Losartan stopped due to BRIANNA increase Coreg, ? entresto ? card consulted calcium channel blockers are not a good choice with low EF (4) Psoriatic arthritis: Plan: Psoriatic Arthritis - Continue home meds (5) Nonischemic cardiomyopathy: Plan: History of Nonischemic HF - Records from [place] requested - 2007 cardiac cath --> no stents. Pt was told ?viral cause of EF 40%. Repeat EF 55% - +Palpitations. Has a loop recorder. Interrogation pending -IV fluids stopped EF 40-45 % card consulted Coreg 12.5 mg bid (6) Seizure: Plan: Hx Seizure, - Keppra 500mg BID, switch to IV while n.p.o. - No recent seizures - Ativan lightning protection installer if needed (7) Anemia: Plan: no evidence of iron deficiency anemia, obtain b12, folate levels monitor CBC needs colonoscopy , possible BM bx (8) Acute kidney failure: Plan: improved cr 1.3 would stop IV fluids due to low EF Plan DVT prophylaxis: SCDs, pharmacal prophylaxis held while evaluating for potential ulcerative bleed Disposition: Medical surgical CODE STATUS: Full code Diet: N.p.o. Admission and Anticipated Discharge Date Admission Date: April 18, 2023 Subjective reports SOB, denies nausea, vomiting, abdominal pain Review of Systems Review of Systems: All systems reviewed & are unremarkable except as noted in Subjective Physical Exam Physical Exam: Head is atraumatic normocephalic Neck supple, no JVD Lungs clear to auscultation bilaterally Heart sounds regular , no murmurs gallops or rubs appreciated Abdomen soft, nontender, nondistended , bowel sounds present Extremities no clubbing, no cyanosis neuro alert, awake, oriented times 3 Results & Data Results & Data Vital Signs (Past 12 Hours) Vital Signs Temp Pulse Pulse Resp BP BP Pulse Ox 04/20/23 14:40 36.5 C 72 18 179/88 H 93 04/20/23 11:29 36.8 C 67 18 172/80 H 97 04/20/23 08:09 73 04/20/23 08:03 04/20/23 07:30 37.0 C 04/20/23 07:11 79 18 92 04/20/23 07:11 159/74 H O2 Del Method 04/20/23 14:40 Room Air 04/20/23 11:29 Room Air 04/20/23 08:09 04/20/23 08:03 Room Air 04/20/23 07:30 04/20/23 07:11 Room Air 04/20/23 07:11 Laboratory Results Abnormal lab results 04/20/23 Range/Units 04:08 WBC 4.06 L (4.8-10.8) K/ul RBC 3.69 L (4.20-5.40) M/uL Hgb 7.9 L (12.0-16.0) g/dl Hct 25.3 L (37.0-47.0) % MCV 68.6 L (80.0-100.0) fL MCH 21.4 L (25.0-34.0) pg MCHC 31.2 L (32.0-36.0) g/dL RDW Std Deviation 54.7 H (36.4-46.3) fL RDW Coeff of Keli 22.8 H (11.5-14.5) % Lymph # (Auto) 1.14 L (1.20-3.40) K/uL [place] # (Auto) 0.67 H (0.11-0.59) K/uL Potassium 3.2 L (3.5-5.1) mmol/L Creatinine 1.31 H (0.6-1.2) mg/dl BUN/Creatinine Ratio 8.4 L (10-20) PG Care Time/CCT Total # of Minutes Spent Total Time Spent with Patient: Total time spent is greater than 50% in coordination of care (as documented) at patient's floor/unit and/or counseling patient: Coding Level of Care Code 37303 SUB INP/OBS CARE 2/35MIN Diagnoses Hypercalcemia E83.52 H/O gastric bypass Z98.84 Hypertension I10 Psoriatic arthritis L40.50 Nonischemic cardiomyopathy I42.8 Seizure R56.9 Anemia D64.9 Acute kidney failure N17.9
[2023-04-20] MEDS ORDERED: PANTOprazole 40 MG TAB PO SCH (21:00)
[2023-04-20] MEDS: hydrALAZINE 10 MG TAB PO SCH (21:04)
--- NOTE | 2023-04-20 21:31 | Cardiology Consultation ---
Date of Consultation April 20, 2023 Assessment & Plan (1) Nonischemic cardiomyopathy: (2) Hypertension: (3) Implantable loop recorder present: (4) Atypical chest pain: Plan ASSESSMENT/PLAN: 1. Nonischemic cardiomyopathy: Has had reduced LV systolic function in the past with normal coronaries per her report. No definite angina but has atypical chest pain. Agree with restarting carvedilol which she had taken in the past. Carvedilol was increased tomorrow to 12.5 mg twice daily. Losartan was discontinued due to acute kidney injury. Recommend MAXIMILIAN inhibitor or ARB when okay from nephrology standpoint. Noted to have moderate concentric LVH. Evaluate for amyloidosis. Laboratory data currently pending. Could also consider outpatient imaging with her primary delivery motorcycle driver if need be. If no identifiable cause, consider outpatient cardiac MRI. She does not meet criteria for ICD for primary prevention. She appears euvolemic. 2. Atypical chest pain: No definite trigger and prolonged episodes have been reported. Will order high-sensitivity troponin. No CAD based on 2007 cath report. 3. Loop recorder: Placed in 2021 while experiencing seizure-like activity. Follow with primary delivery motorcycle driver. 4. Hypertension: Blood pressure has consistently been elevated. Carvedilol increased starting tomorrow morning. Also on amlodipine. When okay from a renal standpoint, would recommend MAXIMILIAN inhibitor or ARB. If MAXIMILIAN inhibitor or ARB are contraindicated going forward, could utilize hydralazine nitrate therapy combination in the setting of reduced LV systolic function. 5. Weight loss/lack of appetite: As per primary service and other providers. 6. Anemia: As per primary service and GI. 7. Disposition: I will be away from the hospital as of this evening. Please call on-call delivery motorcycle driver for any questions or concerns. Patient was signed out to Dr. Jeter who will be covering later this weekend. Thank you for allowing me to participate in the care of your patient. Please call for any other questions or concerns. Sincerely, Tae Escudero M.D. History of Present Illness Reason for Consultation: cardiomyopathy Requesting Physician: Genevieve Mckeon MD Attending Physician: Genevieve Mckeon MD History of Present Illness Ms. Tan is a very pleasant 62-year-old female with a history significant for nonischemic cardiomyopathy, gastric bypass (Jeremias-en-Y 2008) hypertension, psoriatic arthritis, seizures, iron deficiency anemia, and hypercalcemia. Her primary delivery motorcycle driver is Dr. Durant in the [place] area. She was seen earlier this evening. She was diagnosed with cardiomyopathy in 2007 with an ejection fraction of 40%. She underwent cardiac catheterization at that time which was reportedly negative for CAD. She was placed on a diuretic to be used as needed but over time, it was discontinued. She was also placed on carvedilol which was also discontinued by her delivery motorcycle driver and replaced with losartan. For the past 1.5 months, she has had intermittent shortness of breath at any time but denies orthopnea or paroxysmal nocturnal dyspnea. She had ankle swelling a few days ago but wore compression stockings. She has intermittent substernal chest pressure when she feels short of breath. Symptoms are most noted while sitting but can occur with exertion. There has not been any identified trigger. Chest discomfort can last a few hours on occasion. She has lost significant weight prior to presentation over the past approximately 1.5 months. She estimates 20 pound weight loss with fatigue and reduced appetite. She experiences nausea and sometimes vomiting after eating more than 3 or 4 bites of food. This continues to occur even while hospitalized here. She denies syncope, near syncope, palpitations, melena, hematochezia, or hematuria. She has received intravenous iron for anemia. She has undergone endoscopy by GI. She has had the following studies/procedures: 1. Cardiac catheterization 2007 outside facility: No significant CAD. 2. Echo 2007: EF 40%. 3. Echo May 2021 [place]: EF 50% Echo September 2022 [place]: Normal LV systolic function. EF 65-70%. No significant valvular abnormalities. 4. Loop recorder implantation 2021 [place]. 5. Echo 04/19/2023 [facility]: Normal LV size. EF 40-45%. Global hypokinesis. Moderate LVH. Mild AI. Mild MR. RVSP 21. Review of systems: As above. Review of systems otherwise negative/unremarkable. Family history: Brother had MO at 40 and at 48. Father and grandfather had cardiac issues. Social history: Denies tobacco or drug abuse. Rare alcohol. Lives at home with her spouse. Has a son who is a PA in [employer] [facility] and sometimes at [facility]. Also has a daughter who lives locally. She was unaccompanied. Allergies Allergy/AdvReac Type Severity Reaction Status Date / Time doxycycline Allergy Hives Verified 04/18/23 13:39 Home Medications Medication Instructions Recorded Confirmed Type apremilast 30 mg tablet (Otezla) 30 mg PO BID 02/09/20 04/18/23 History mecobalamin (vitamin B12) 1,000 mcg IM MONTHLY 04/22/21 04/18/23 History amlodipine 5 mg tablet 5 mg PO HS 04/18/23 04/18/23 History aspirin 81 mg tablet,delayed 81 mg PO QAM 04/18/23 04/18/23 History release (Adult Low Dose Aspirin) levetiracetam 500 mg tablet 500 mg PO BID 04/18/23 04/18/23 History (Keppra) levocetirizine 5 mg tablet 5 mg PO HS 04/18/23 04/18/23 History levothyroxine 150 mcg capsule 125 mcg PO QAM 04/18/23 04/18/23 History losartan 50 mg tablet 50 mg PO BID 04/18/23 04/18/23 History rosuvastatin 20 mg tablet 20 mg PO HS 04/18/23 04/18/23 History sulfasalazine 500 mg tablet 0.5 g PO BID 04/18/23 04/18/23 History Patient History Medical History (Updated 04/20/23 @ 22:14 by Adán Escudero MD) Implantable loop recorder present Hypothyroid Psoriasis Seasonal allergies Hypertension Surgical History H/O abdominoplasty History of surgery dental implant H/O bilateral breast reduction surgery S/P left knee arthroscopy History of surgery bladder sling H/O gastric bypass H/O colonoscopy History of cardiac cath History of carpal tunnel surgery of left wrist History of surgery disc decompression History of cholecystectomy H/O: hysterectomy Hx of tonsillectomy Family History Brother Hypertension Heart disease Mother Hypertension Cancer Father Hypertension Stroke Cancer Heart disease Grandfather Stroke Heart disease Aunt Allergies Denies family history of Hearing loss No family history of adverse response to anesthesia No family history of bleeding disorder Asthma Social History Smoking Status: Never smoker Do You Dip or Chew Tobacco: No; Hx Alcohol Use: Yes Alcohol type: beer, wine and hard liquor Alcohol Intake Frequency Comment: Socially per new patient form Hx Substance Use: No Preferred Language: Sudanese Communication Ability: Effective Concrete Vault Maker Required: No Beliefs That Will Affect Care: None marital status: Current Living Situation: Spouse current occupational status: employed current occupation: [employer] How many Children do You have: 2 Other Information That Helps Us Care for You: No Feels Safe at Home: Yes Safety Concerns: Feels Safe At This Time Assistive Devices: None Physical Exam Physical Exam: Gen.: No acute distress. Alert and oriented. HEENT: Anicteric sclera. Neck: No JVD. No bruits. Normal carotid upstrokes bilaterally. Cardiac: No ventricular heave. Regular. Normal S1-S2. No murmurs, rubs, or gallops. Pulmonary: Clear to auscultation bilaterally without wheezes, rales, or rhonchi. Abdomen: Soft, nontender, nondistended, with normoactive bowel sounds. No bruits noted. Extremities: 2+ radial pulses bilaterally. 2+ posterior tibialis pulses bilaterally. No edema or cyanosis. Psychiatric: Affect appears appropriate. Results & Data Vital Signs (Past 12 Hours) Vital Signs Temp Pulse Pulse Resp BP BP Pulse Ox 04/20/23 14:40 36.5 C 72 18 179/88 H 93 04/20/23 11:29 36.8 C 67 18 172/80 H 97 04/20/23 08:09 73 04/20/23 08:03 04/20/23 07:30 37.0 C 04/20/23 07:11 79 18 92 04/20/23 07:11 159/74 H O2 Del Method 04/20/23 14:40 Room Air 04/20/23 11:29 Room Air 04/20/23 08:09 04/20/23 08:03 Room Air 04/20/23 07:30 04/20/23 07:11 Room Air 04/20/23 07:11 Laboratory Results Laboratory Results - last 24 hr 04/20/23 04:08 WBC 4.06 L RBC 3.69 L Hgb 7.9 L Hct 25.3 L MCV 68.6 L MCH 21.4 L MCHC 31.2 L RDW Std Deviation 54.7 H RDW Coeff of Keli 22.8 H Plt Count 213 MPV 9.8 Immature Gran % (Auto) 0.2 Neut % (Auto) 50.1 Lymph % (Auto) 28.1 [place] % (Auto) 16.5 Eos % (Auto) 4.4 Baso % (Auto) 0.7 Neut # (Auto) 2.03 Lymph # (Auto) 1.[address] [place] [place] # (Auto) 0.67 H Eos # (Auto) 0.18 Baso # (Auto) 0.03 Immature Gran # (Auto) 0.01 Hypochromasia Present Microcytosis Present Sodium 138 Potassium 3.2 L Chloride 105 Carbon Dioxide 26 Anion Gap 7 BUN 11 Creatinine 1.31 H Est Cr Clr Drug Dosing 43.3 Est GFR ( Amer) 50.4 Est GFR (Non-Af Amer) 43.5 BUN/Creatinine Ratio 8.4 L Glucose 80 Calcium 10.0 Diagnostic Findings Echo report reviewed as noted above in HPI. Outside echo report reviewed on patient's portal via her telephone. ECG personally reviewed 04/18/2023 1713: Sinus rhythm 78 bpm. EGD report 04/19/2023: Normal esophagus. Gastric bypass. Mildly erythematous area. Nephrology progress note reviewed. Labs reviewed and notable for mild hypokalemia, abnormal renal function, anemia. Normal transaminase levels, normal TSH. CT abdomen/pelvis 04/18/2023: No evidence for bowel obstruction. No evidence for contrast leakage. No abscess. Lower extremity Doppler 04/18/2023: No DVT bilateral lower extremities. Chest x-ray 04/18/2023: Mild diffuse interstitial coarsening, possibly chronic per radiology. Medications Administered Current Inpatient Medications Acetaminophen (Acetaminophen 325 Mg Tab) 650 mg PO Q4H PRN PRN Reason: pain/fever Stop: 05/18/23 16:12 Acetaminophen (Acetaminophen 325 Mg Tab) 650 mg PO Q4H PRN PRN Reason: Mild-Mod Pain (Scale 1-6) Stop: 05/20/23 07:35 Last Admin: 04/20/23 07:44 Dose: 650 mg Amlodipine Besylate (Amlodipine Besylate 5 Mg Tab) 5 mg PO HS [facility] Stop: 05/18/23 20:59 Last Admin: 04/18/23 21:23 Dose: Not Given Amlodipine Besylate (A[facility]odipine Besylate 5 Mg Tab) [facility] [facility] Stop: 05/19/23 08:59 Last Admin: 04/20/23 08:32 Dose: 10 mg Carvedilol (Carvedilol 12.5 Mg Tab) 12.5 mg PO BIDM [facility] Stop: 05/21/23 07:59 Cetirizine HCl (Cetirizine Hcl 10 Mg Tablet) 10 mg PO HS [facility] Stop: 05/18/23 20:59 Last Admin: 04/18/23 21:23 Dose: Not Given Hydralazine HCl (Hydralazine 10 Mg Tab) 10 mg PO Q8 [facility] Stop: 05/20/23 21:59 Last Admin: 04/20/23 21:04 Dose: 10 mg Lorazepam 2 mg/ Syringe 2 mls @ 2 mls/min IV Q5M PRN; Protocol PRN Reason: SEIZURE Stop: 05/18/23 21:29 Labetalol HCl (Labetalol Hcl Iv 5 Mg/Ml 20ml) 10 mg IV Q6H PRN PRN Reason: SBP > 180 Stop: 05/18/23 21:18 Last Admin: 04/19/23 08:05 Dose: 10 mg Levetiracetam (Levetiracetam 500 Mg Tab) 500 mg PO BID [facility] Stop: 05/18/23 20:59 Last Admin: 04/18/23 21:23 Dose: Not Given Levetiracetam (Levetiracetam 500 Mg Tab) 500 mg PO BID [facility] Stop: 05/19/23 08:59 Last Admin: 04/20/23 21:04 Dose: 500 mg Levothyroxine Sodium (Levothyroxine Sodium 125 Mcg Tablet) 125 mcg PO DAILYBB [facility] Stop: 05/20/23 06:29 Last Admin: 04/20/23 05:29 Dose: 125 mcg Ondansetron HCl (Ondansetron Inj 2 Mg/Ml 2 Ml Vial) 4 mg IV Q6H PRN PRN Reason: Nausea Stop: 05/18/23 16:12 Last Admin: 04/19/23 17:26 Dose: 4 mg Pantoprazole Sodium (Pantoprazole 40 Mg Tab) 40 mg PO QAM [facility] Stop: 05/21/23 08:59 Polyethylene Glycol (Polyethylene (Miralax) 17 Gm Pack) 17 gm PO DAILY PRN PRN Reason: Constipation Stop: 05/18/23 16:12 Rosuvastatin Calcium (Rosuvastatin Calcium 20 Mg Tab) 20 mg PO HS [facility] Stop: 05/18/23 20:59 Last Admin: 04/18/23 21:24 Dose: Not Given Sulfasalazine (Sulfasalazine 500 Mg Tablet) 500 mg PO BID [facility] Stop: 05/18/23 20:59 Last Admin: 04/18/23 21:24 Dose: Not Given PG Care Time/CCT Total # of Minutes Spent Total Time Spent with Patient: Total time spent is greater than 50% in coordination of care (as documented) at patient's floor/unit and/or counseling patient: Coding Level of Care Code 80568 INT INP/OBS CARE 3/75MIN Diagnoses Nonischemic cardiomyopathy I42.8 Hypertension I10 Implantable loop recorder present Z95.818 Atypical chest pain R07.89
[2023-04-21 04:28] LABS: Basophils # (auto) 0.03 K/uL (0.00-0.20); Basophils % (auto) 0.8 %; Eosinophils # (auto) 0.16 K/uL (0.00-0.50); Eosinophils % (auto) 4.3 %; Hematocrit (blood only) 27.2 % (37.0-47.0); Hemoglobin 8.5 g/dl (12.0-16.0); Immature Granulocytes # (auto) 0.01 K/uL (0.01-0.20); Immature Granulocytes % (auto) 0.3 %; Lymphocytes # (auto) 1.32 K/uL (1.20-3.40); Lymphocytes % (auto) 35.3 %; Mean Corpuscular Hemoglobin 21.6 pg (25.0-34.0); Mean Corpuscular Hgb Conc 31.3 g/dL (32.0-36.0); Mean Corpuscular Volume 69.2 fL (80.0-100.0); Monocytes # (auto) 0.61 K/uL (0.11-0.59); Monocytes % (auto) 16.3 %; Neutrophils # (auto) 1.61 K/uL (1.40-6.50); RDW Coefficient of Variation 23.1 % (11.5-14.5); RDW Standard Deviation 56.1 fL (36.4-46.3); Red Blood Count 3.93 M/uL (4.20-5.40); White Blood Count 3.74 K/ul (4.8-10.8)
[2023-04-21 04:53] LABS: Albumin Level 3.5 gm/dl (3.4-5.0); Bilirubin,Total 0.4 mg/dl (0.2-1.0); Calcium 10.1 mg/dl (8.6-10.3); Potassium 3.4 mmol/L (3.5-5.1)
[2023-04-21 04:59] LABS: Albumin Globulin Ratio 1.6 (0.9-2); BUN Creatinine Ratio 10.9 (10-20); Creatinine Clr Calc Pharmacy 44.3 ml/min; Est GFR (African American) 51.9 ml/min; Est GFR (Non-African American) 44.8 ml/min; Globulin 2.2 gm/dl (2.5-4.0); Total Protein 5.7 gm/dl (6.0-8.3)
[2023-04-21 05:02] LABS: Troponin I High Sensitivity 9.8 pg/ml (0-14)
[2023-04-21 05:05] LABS: Anisocytosis Present; Mean Platelet Volume 9.3 fL (9.4-12.4); Microcytosis Present; Platelet Count 232 K/uL (130-400); Polychromasia 1+
--- NOTE | 2023-04-21 06:18 | Electrocardiogram Report ---
Test Reason : Blood Pressure : / mmHG Vent. Rate : 078 BPM Atrial Rate : 078 BPM P-R Int : 178 ms QRS Dur : 086 ms QT Int : 384 ms P-R-T Axes : 063 063 066 degrees QTc Int : 437 ms Normal sinus rhythm Normal ECG When compared with ECG of 26-DEC-2011 07:54, Vent. rate has increased BY 29 BPM Confirmed by Adán Escudero ([id number]) on 04/21/2023 6:18:13 AM Referred By: Pastor Saleh Confirmed By:Adán Escudero
[2023-04-21] MEDS: carvediloL 12.5 MG TAB PO SCH (08:26)
[2023-04-21] MEDS: PANTOprazole 40 MG TAB PO SCH (08:27)
[2023-04-21] MEDS ORDERED: ALUMINUM/MAGNESIUM SUSP 30 ML UDC PO PRN (08:36)
[2023-04-21] MEDS: SUCRALFATE 1 GM/10 ML UDC PO SCH (09:48)
--- NOTE | 2023-04-21 12:36 | Nephrology Progress Note ---
Date of Service April 21, 2023 Assessment & Plan (1) Acute kidney injury: Plan: * Baseline Cr 0.8 * BRIANNA is due to profound JAMES and hypercalcemia in the setting of ARB therapy * Losartan has been held but could be reasonably restarted if kidney function stable tomorrow * Creatinine has improved from 1.7 to 1.3 following IV hydration * IVF stopped this AM * 04/18/23 urinalysis is negative for blood, protein, LE. No microscopy performed * 04/18/[address] is negative for hydronephrosis. There is a 4 mm nonobstructing stone in inferior pole L kidney and punctate stone upper pole of R kidney (2) Hypertension: Plan: * Losartan held due to BRIANNA, may restart if kidney function is stable tomorrow * Continue Amlodipine for BP management * BP and volume status acceptable this AM (3) Hypercalcemia: Plan: * Ca-citrate was stopped as outpatient * Non-PTH mediated hypercalcemia * Serum Ca corrected to 10.0 (Albumin 3.9) following IV hydration, * vitamin D 38, PTH 9.3 * TSH, PTHrp, Lefors/Lambda free light chains, SIEP, 24 hour urine immunoelectrophoresis - pending * 04/18/23 PA & lat CXR - no nodule, mass, CHF * 01/27 Mammogram negative for malignancy per patient report * GI evaluation to be coordinated as outpatient (4) Iron deficiency anemia: Plan: * h/o obesity s/p bariatric surgery 2009. 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 * Received IV iron at [facility] earlier this week. Was scheduled for IV iron as outpatient today. 200 mg Venofer x1 yesterday * Hgb 7.9 this AM * FOBT - negative * 04/18/23 abdominal/pelvic CT - possible ulcer at gastrojejunal anastomosis * 04/19/23 EGD - normal esophagus, gastrojejunal anastomosis w/ health mucosa, normal jejunum. Continue PPI and Carafate daily * Outpatient follow up with bariatric surgical team (5) Psoriatic arthritis: Plan: * Managed w/ Apremilast (Otezla) * Apremilast side effect can include weight loss (up to 10% body weight) Admission and Anticipated Discharge Date Admission Date: April 18, 2023 Subjective No acute events overnight. Natasha feels reasonably well this AM. She denies fluid retention or edema. Appetite is good. Some abdominal discomfort and burning after eating this morning. Carafate has been restarted. Natasha otherwise feels well. Review of Systems Review of Systems: All systems reviewed & are unremarkable except as noted in HPI & below Physical Exam Constitutional: well developed; no acute distress Eyes: no scleral abnormality and no corneal abnormality ENMT: Mouth: no oral mucosal abnormality and oral mucous membranes not dry Neck: normal visual inspection and trachea midline Respiratory: normal respiratory effort Auscultation: lungs clear to auscultation bilaterally Cardiovascular: Rate/Rhythm: regular rate Heart Sounds: normal S1 and normal S2 Extremities: no edema Musculoskeletal: Extremities: no cyanosis and no clubbing Skin: normal turgor; no lesions Neurologic: Motor/Sensory: no tremor and no asterixis Psychiatric: Orientation: alert and oriented x 3 Results & Data Vital Signs (Past 12 Hours) Vital Signs Temp Pulse Pulse Resp BP BP Pulse Ox 04/21/23 09:00 75 13 04/21/23 08:22 80 18 94 04/21/23 08:22 157/73 H 95 04/21/23 08:14 36.4 C L 04/21/23 08:00 84 20 04/21/23 07:50 78 19 04/21/23 05:10 153/79 H 04/21/23 03:40 36.8 C 84 16 143/69 H 94 04/21/23 00:45 66 O2 Del Method 04/21/23 09:00 04/21/23 08:22 04/21/23 08:22 Room Air 04/21/23 08:14 04/21/23 08:00 04/21/23 07:50 04/21/23 05:10 04/21/23 03:40 Room Air 04/21/23 00:45 Laboratory Results Laboratory Results - last 24 hr 04/21/23 04/21/23 04:03 09:15 WBC 3.74 L RBC 3.93 L Hgb 8.5 L Hct 27.2 L MCV 69.2 L MCH 21.6 L MCHC 31.3 L RDW Std Deviation 56.1 H RDW Coeff of Keli 23.1 H Plt Count 232 MPV 9.3 L Immature Gran % (Auto) 0.3 Neut % (Auto) 43.0 Lymph % (Auto) 35.3 [place] % (Auto) 16.3 Eos % (Auto) 4.3 Baso % (Auto) 0.8 Neut # (Auto) 1.61 Lymph # (Auto) 1.32 [place] # (Auto) 0.61 H Eos # (Auto) 0.16 Baso # (Auto) 0.03 Immature Gran # (Auto) 0.01 Polychromasia 1+ Anisocytosis Present Microcytosis Present Sodium 141 Potassium 3.4 L Chloride 107 Carbon Dioxide 26 Anion Gap 8 BUN 14 Creatinine 1.28 H Est Cr Clr Drug Dosing 44.3 Est GFR ( Amer) 51.9 Est GFR (Non-Af Amer) 44.8 BUN/Creatinine Ratio 10.9 Glucose 84 Calcium 10.1 Total Bilirubin 0.4 AST 23 ALT 15 Alkaline Phosphatase 51 Troponin I High Sens 9.8 Total Protein 5.7 L Albumin 3.5 Globulin 2.2 L Albumin/Globulin Ratio 1.6 Stool Occult Bld Scrn Negative PG Care Time/CCT Total # of Minutes Spent Total Time Spent with Patient: Total time spent is greater than 50% in coordination of care (as documented) at patient's floor/unit and/or counseling patient: Coding Level of Care Code 54639 SUB INP/OBS CARE 3/50MIN Diagnoses Acute kidney injury N17.9 Hypertension I10 Hypercalcemia E83.52 Iron deficiency anemia D50.9 Psoriatic arthritis L40.50
--- NOTE | 2023-04-21 14:00 | Hospitalist Progress Note ---
Date of Service April 21, 2023 Assessment & Plan (1) Hypercalcemia: Plan: Hypercalcemia, weight loss - OSH PTH normal, Vitamin D pending -PTHRP ordered SPEP, UPEP, serum free chain analysis ordered and pending Calcium citrate was stopped as outpatient Serum calcium corrected to 10 after IV fluid IV fluid discontinued today Malignancy workup: Mammogram 01/27 negative per patient report, chest x-ray 04/28 negative GI workup to be completed outpatient [place]/lambda free light chains, 24-hour urine immunoelectrophoresis, SPEP, UPEP pending (2) H/O gastric bypass: Plan: History of Jeremias-en-Y bypass bariatric surgery 2008 with [facility] Ritter -Initial CTA/P on admission "There is wall thickening with adjacent inflammatory stranding at the gastrojejunal anastomosis and there is also debris present within the excluded stomach. Follow-up with bariatric surgery recommended in order to exclude anastomotic dehiscence." -Since then, the case was discussed w Dr. Ritter At [facility] surgical associates. Reviewed imaging findings. Suspect that this is likely ulcerative blood rather than dehiscence especially with her stable clinical appearance. Recommend a oral only upper GI CT study to evaluate for anastomotic dehiscence. Upper GI CT was done that ruled out DVT since. Patient is being treated with PPI and Carafate s/p EGD s/p EGD , no evidence of esophagitis or gastritis on PPI and Carafate needs colonoscopy as outpatient (3) Hypertension: Plan: on Amlodipine, started Coreg, Losartan stopped due to BRIANNA Carvedilol increased starting today Once okay from renal standpoint, cardiology recommends MAXIMILIAN inhibitor or ARB. If MAXIMILIAN or ARB still remain contraindicated due to renal failure, hydralazine may be considered Per nephrology, losartan may be restarted tomorrow if renal function is stable (4) Psoriatic arthritis: Plan: Psoriatic Arthritis - Continue home meds (5) Nonischemic cardiomyopathy: Plan: History of Nonischemic HF - Records from [place] requested - 2007 cardiac cath --> no stents. Pt was told ?viral cause of EF 40%. Repeat EF 55% - +Palpitations. Has a loop recorder. Interrogation pending -IV fluids stopped EF 40-45 % Cardiology involved Coreg dose increased Euvolemic at this time (6) Seizure: Plan: Hx Seizure, - Keppra 500mg BID - No recent seizures - Ativan baton teacher if needed (7) Anemia: Plan: no evidence of iron deficiency anemia, obtain b12, folate levels monitor CBC needs colonoscopy , possible BM bx (8) Acute kidney failure: Plan: improved cr 1.3 IV fluids discontinued Plan DVT prophylaxis: SCDs, pharmacal prophylaxis held while evaluating for potential ulcerative bleed Disposition: Medical surgical CODE STATUS: Full code Diet: N.p.o. Admission and Anticipated Discharge Date Admission Date: April 18, 2023 Subjective Patient feels well. Denies chest pain or shortness of breath. No abdominal pain. Review of Systems Review of Systems: All systems reviewed & are unremarkable except as noted in Subjective Physical Exam Physical Exam: General: Awake, conversant Heart: S1, S2/regular rate and rhythm, no murmur rubs or gallops Lungs: Clear to auscultation bilaterally. Normal effort Abdomen: Soft/nontender/nondistended. No hepatosplenomegaly Extremities: No clubbing/cyanosis. No edema Behavior: Appropriate, cooperative Results & Data Results & Data Vital Signs (Past 12 Hours) Vital Signs Temp Pulse Pulse Resp BP BP Pulse Ox 04/21/23 12:27 141/75 H 95 04/21/23 12:27 78 20 04/21/23 12:05 36.7 C 04/21/23 12:00 73 14 04/21/23 11:00 67 16 04/21/23 09:00 75 13 04/21/23 08:22 80 18 94 04/21/23 08:22 157/73 H 95 04/21/23 08:14 36.4 C L 04/21/23 08:00 84 20 04/21/23 07:50 78 19 04/21/23 05:10 153/79 H 04/21/23 03:40 36.8 C 84 16 143/69 H 94 O2 Del Method 04/21/23 12:27 Room Air 04/21/23 12:27 04/21/23 12:05 04/21/23 12:00 04/21/23 11:00 04/21/23 09:00 04/21/23 08:22 04/21/23 08:22 Room Air 04/21/23 08:14 04/21/23 08:00 04/21/23 07:50 04/21/23 05:10 04/21/23 03:40 Room Air Laboratory Results Abnormal lab results 04/21/23 Range/Units 04:03 WBC 3.74 L (4.8-10.8) K/ul RBC 3.93 L (4.20-5.40) M/uL Hgb 8.5 L (12.0-16.0) g/dl Hct 27.2 L (37.0-47.0) % MCV 69.2 L (80.0-100.0) fL MCH 21.6 L (25.0-34.0) pg MCHC 31.3 L (32.0-36.0) g/dL RDW Std Deviation 56.1 H (36.4-46.3) fL RDW Coeff of Keli 23.1 H (11.5-14.5) % MPV 9.3 L (9.4-12.4) fL Wallace # (Auto) 0.61 H (0.11-0.59) K/uL Potassium 3.4 L (3.5-5.1) mmol/L Creatinine 1.28 H (0.6-1.2) mg/dl Total Protein 5.7 L (6.0-8.3) gm/dl Globulin 2.2 L (2.5-4.0) gm/dl PG Care Time/CCT Total # of Minutes Spent Total Time Spent with Patient: Total time spent is greater than 50% in coordination of care (as documented) at patient's floor/unit and/or counseling patient: Coding Level of Care Code 46660 SUB INP/OBS CARE 2/35MIN Diagnoses Hypercalcemia E83.52 H/O gastric bypass Z98.84 Hypertension I10 Psoriatic arthritis L40.50 Nonischemic cardiomyopathy I42.8 Seizure R56.9 Anemia D64.9 Acute kidney failure N17.9
[2023-04-22 06:01] LABS: Albumin Globulin Ratio 1.6 (0.9-2); Albumin Level 3.5 gm/dl (3.4-5.0); BUN Creatinine Ratio 13.8 (10-20); Bilirubin,Total 0.3 mg/dl (0.2-1.0); Calcium 10.2 mg/dl (8.6-10.3); Creatinine Clr Calc Pharmacy 46.1 ml/min; Est GFR (African American) 54.4 ml/min; Globulin 2.2 gm/dl (2.5-4.0); Potassium 3.6 mmol/L (3.5-5.1); Total Protein 5.7 gm/dl (6.0-8.3)
--- NOTE | 2023-04-22 11:23 | Nephrology Progress Note ---
Date of Service April 22, 2023 Assessment & Plan (1) Acute kidney injury: Plan: * Baseline Cr 0.8 * BRIANNA is due to profound JAMES and hypercalcemia in the setting of ARB therapy * Losartan has been held but could be reasonably restarted if kidney function remains stable * Creatinine has improved from 1.7 to 1.3 following IV hydration * IVF stopped yesterday AM * 04/18/23 urinalysis is negative for blood, protein, LE. No microscopy performed * 04/18/[address] is negative for hydronephrosis. There is a 4 mm nonobstructing stone in inferior pole L kidney and punctate stone upper pole of R kidney (2) Hypertension: Plan: * Losartan held due to BRIANNA, may restart if kidney function remains stable * Continue Amlodipine for BP management * Carvedilol and hydralazine were added yesterday - I would suggest returning to home regimen of losartan and amlodipine at discharge * BP and volume status acceptable this AM (3) Hypercalcemia: Plan: * Ca-citrate was stopped as outpatient * Non-PTH mediated hypercalcemia * Serum Ca corrected to 10.0 (Albumin 3.9) following IV hydration * TSH acceptable * PTHrp, [place]/Lambda free light chains, SIEP, 24 hour urine immunoelec trophoresis - pending * 04/18/23 PA & lat CXR - no nodule, mass, CHF * 01/27 Mammogram negative for malignancy per patient report * GI evaluation to be coordinated as outpatient (4) Iron deficiency anemia: Plan: * h/o obesity s/p bariatric surgery 2009. RYGB may be causing iron malabs orption * Received IV iron at [facility] last week. 200 mg Venofer x1 04/19. Tsat 37 * Hgb stable ~8.5 * FOBT - negative * 04/18/23 abdominal/pelvic CT - possible ulcer at gastrojejunal anastomosis * 04/19/23 EGD - normal esophagus, gastrojejunal anastomosis w/ health mucosa, normal jejunum. Continue PPI and Carafate daily * Outpatient follow up with bariatric surgical team (5) Psoriatic arthritis: Plan: * Managed w/ Apremilast (Otezla) * Apremilast side effect can include weight loss (up to 10% body weight) Admission and Anticipated Discharge Date Admission Date: April 18, 2023 Subjective No acute events overnight. Natasha feels well this AM. GI upset improved with Carafate. Natasha reports some mild right lower quadrant abdominal discomfort this AM. She denies constipation. No diarrhea. No melena or hematochezia. Appetite is fair. No fluid retention or edema. Review of Systems Review of Systems: All systems reviewed & are unremarkable except as noted in HPI & below Physical Exam Constitutional: well developed; no acute distress Eyes: no scleral abnormality and no corneal abnormality ENMT: Mouth: no oral mucosal abnormality and oral mucous membranes not dry Neck: normal visual inspection and trachea midline Respiratory: normal respiratory effort Auscultation: lungs clear to auscultation bilaterally Cardiovascular: Rate/Rhythm: regular rate Heart Sounds: normal S1 and normal S2 Extremities: no edema Gastrointestinal (Abdomen): Inspection/Auscultation: abdomen normal to inspection and + hyperactive bowel sounds; abdomen not distended Percussion/Palpation: + abdomen tender (mild - RLQ) and abdomen soft; no guarding and abdomen not rigid Musculoskeletal: Extremities: no cyanosis and no clubbing Skin: normal turgor; no lesions Neurologic: Motor/Sensory: no tremor and no asterixis Psychiatric: Orientation: alert and oriented x 3 Results & Data Vital Signs (Past 12 Hours) Vital Signs Temp Pulse Pulse Resp BP BP Pulse Ox 04/22/23 08:09 36.8 C 77 18 139/76 94 04/22/23 07:50 64 04/22/23 03:00 36.9 C 70 18 134/75 91 O2 Del Method 04/22/23 08:09 Room Air 04/22/23 07:50 04/22/23 03:00 Room Air Laboratory Results Laboratory Results - last 24 hr 04/22/23 05:16 Sodium 141 Potassium 3.6 Chloride 108 H Carbon Dioxide 27 Anion Gap 6 BUN 17 Creatinine 1.23 H Est Cr Clr Drug Dosing 46.1 Est GFR ( Amer) 54.4 Est GFR (Non-Af Amer) 47.0 BUN/Creatinine Ratio 13.8 Glucose 86 Calcium 10.2 Total Bilirubin 0.3 AST 17 ALT 13 Alkaline Phosphatase 47 Total Protein 5.7 L Albumin 3.5 Globulin 2.2 L Albumin/Globulin Ratio 1.6 PG Care Time/CCT Total # of Minutes Spent Total Time Spent with Patient: Total time spent is greater than 50% in coordination of care (as documented) at patient's floor/unit and/or counseling patient: Coding Level of Care Code 19634 SUB INP/OBS CARE 350MIN Diagnoses Acute kidney injury N17.9 Hypertension I10 Hypercalcemia E83.52 Iron deficiency anemia D50.9 Psoriatic arthritis L40.50
--- NOTE | 2023-04-22 17:03 | Hospitalist Progress Note ---
Date of Service April 22, 2023 Assessment & Plan (1) Hypercalcemia: Plan: Hypercalcemia, weight loss - OSH PTH normal, Vitamin D pending -PTHRP ordered SPEP, UPEP, serum free chain analysis ordered and pending Calcium citrate was stopped as outpatient Serum calcium corrected to 10 after IV fluid IV fluid discontinued 04/20 Malignancy workup: Mammogram 01/27 negative per patient report, chest x-ray 04/28 negative GI workup to be completed outpatient [place]/lambda free light chains, 24-hour urine immunoelectrophoresis, SPEP, UPEP pending (2) H/O gastric bypass: Plan: History of Jeremias-en-Y bypass bariatric surgery 2008 with [facility] Ritter -Initial CTA/P on admission "There is wall thickening with adjacent inflammatory stranding at the gastrojejunal anastomosis and there is also debris present within the excluded stomach. Follow-up with bariatric surgery recommended in order to exclude anastomotic dehiscence." -Since then, the case was discussed w Dr. Ritter At [facility] surgical associates. Reviewed imaging findings. Suspect that this is likely ulcerative blood rather than dehiscence especially with her stable clinical appearance. Recommend a oral only upper GI CT study to evaluate for anastomotic dehiscence. Upper GI CT was done that ruled out DVT since. Patient is being treated with PPI and Carafate s/p EGD s/p EGD , no evidence of esophagitis or gastritis on PPI and Carafate needs colonoscopy as outpatient (3) Hypertension: Plan: on Amlodipine, started Coreg, Losartan stopped due to BRIANNA Carvedilol increased Cardiology recommends resuming losartan. Nephrology cleared Discontinued hydralazine and resumed losartan home dose Will monitor blood pressure overnight (4) Psoriatic arthritis: Plan: Psoriatic Arthritis - Continue home meds (5) Nonischemic cardiomyopathy: Plan: History of Nonischemic HF - Records from [place] requested - 2007 cardiac cath --> no stents. Pt was told ?viral cause of EF 40%. Repeat EF 55% - +Palpitations. Has a loop recorder. 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 Admission and Anticipated Discharge Date Admission Date: April 18, 2023 Subjective Patient feels well overall. Denies chest pain, shortness of breath, abdominal pain Review of Systems Review of Systems: All systems reviewed & are unremarkable except as noted in Subjective Physical Exam Physical Exam: General: Awake, conversant Heart: S1, S2/regular rate and rhythm, no murmur rubs or gallops Lungs: Clear to auscultation bilaterally. Normal effort Abdomen: Soft/nontender/nondistended. No hepatosplenomegaly Extremities: No clubbing/cyanosis. No edema Behavior: Appropriate, cooperative Results & Data Results & Data Vital Signs (Past 12 Hours) Vital Signs Temp Pulse Pulse Resp BP Pulse Ox O2 Del Method 04/22/23 14:55 78 04/22/23 08:09 36.8 C 77 18 139/76 94 Room Air 04/22/23 07:50 64 Laboratory Results Abnormal lab results 04/22/23 Range/Units 05:16 Chloride 108 H (98-107) mmol/L Creatinine 1.23 H (0.6-1.2) mg/dl Total Protein 5.7 L (6.0-8.3) gm/dl Globulin 2.2 L (2.5-4.0) gm/dl PG Care Time/CCT Total # of Minutes Spent Total Time Spent with Patient: Total time spent is greater than 50% in coordination of care (as documented) at patient's floor/unit and/or counseling patient: Coding Level of Care Code 16619 SUB INP/OBS CARE 2/35MIN Diagnoses Hypercalcemia E83.52 H/O gastric bypass Z98.84 Hypertension I10 Psoriatic arthritis L40.50 Nonischemic cardiomyopathy I42.8 Seizure R56.9 Anemia D64.9 Acute kidney failure N17.9
[2023-04-22] MEDS: LOSARTAN POTASSIUM 50 MG TAB PO SCH (20:33)
[2023-04-23 06:52] LABS: Albumin Globulin Ratio 1.6 (0.9-2); Albumin Level 3.5 gm/dl (3.4-5.0); BUN Creatinine Ratio 15.2 (10-20); Bilirubin,Total 0.3 mg/dl (0.2-1.0); Creatinine Clr Calc Pharmacy 45.4 ml/min; Est GFR (African American) 53.4 ml/min; Est GFR (Non-African American) 46.1 ml/min; Globulin 2.2 gm/dl (2.5-4.0); Potassium 3.7 mmol/L (3.5-5.1); Total Protein 5.7 gm/dl (6.0-8.3)
--- NOTE | 2023-04-23 11:11 | Nephrology Progress Note ---
Date of Service April 23, 2023 Assessment & Plan (1) Acute kidney failure: (2) Anemia: (3) Hypercalcemia: (4) Hypertension: (5) H/O gastric bypass: Plan 62 year old female, admitted with BRIANNA, JAMES, hypercalcemia and weight loss of 25 lbs and progressive fatigue over the last 4 months. She was seen by her PCP, Hb was 8.6 g/dl on 03/26/23 which was a drop from 12 g/dL on 12/26/22. Seen by Dr. Doss ([facility]) w/u showed Iron sat 8% with ferritin 12, Cr 1.7 (baseline 0.8). IV iron was provided. Unfortunately her symptoms persisted and she was admitted to [facility] from 04/16/23 to 04/18/23 where Hgb was 9.5, Cr 1.78, and Ca was 13.4, PTH suppressed at 7.0, vitamin D 38. She was given IV fluid and discharged. No h/o NSAIDS or herbal supplements. No h/o BRIANNA, no FHx of CKD/ESKD. h/o [facility], Grave's disease s/p thyroid ablation, HTN, psoriasis, hypercholesterolemia and seizure disorder. Mammogram on 01/27 was negative, last colonoscopy 2018 at [facility] was negative. She is post menopausal and s/p TIKA. Ca normalized has been stable. Creatinine stabilized at 1.3,-stable. Hemoglobin stable. Blood pressure better controlled as currently she is back on her home regimen. -- PTH RP and paraproteinemia workup still pending. -- However, since kidney function staying stable, calcium has been normal over last 4 days overall she has been feeling better, okay to be discharged with close outpatient lab monitoring -- If discharges later today, recommend checking lab in 2 days and then next week -- Will arrange for outpatient nephrology follow-up with Dr. Saleh however most important will be to maintain follow-up with GI and hematology. Will follow while inpatient. Admission and Anticipated Discharge Date Admission Date: April 18, 2023 Luciana Kaur was seen and evaluated this morning. Overall she feels well, denies any confusion, shortness of breath, chest pain. Has been voiding normally. Denies constipation. Blood pressure became better controlled, currently she is back on her home regimen. Calcium staying stable at 10.0-10.1. Kidney function stable creatinine around 1.3, other electrolyte acceptable. Review of Systems Review of Systems: Detailed review of system was done and pertinent positives and negatives are mentioned above. Physical Exam Constitutional: WD/WN, vitals as above no acute distress Eyes: + anicteric sclerae Neck: normal visual inspection Respiratory: Auscultation: lungs clear to auscultation bilaterally Cardiovascular: RRR, no murmur, no edema Skin: no rashes, warm and dry Neurologic: no focal motor deficits and not confused Psychiatric: Orientation: alert and oriented x 3 Results & Data Vital Signs (Past 12 Hours) Vital Signs Temp Pulse Pulse Pulse Resp BP Pulse Ox 04/23/23 07:55 36.3 C L 66 16 136/78 98 04/23/23 07:46 65 04/23/23 04:00 36.5 C 84 18 136/78 94 04/22/23 23:43 36.7 C 71 18 129/74 93 04/22/23 23:00 73 O2 Del Method 04/23/23 07:55 Room Air 04/23/23 07:46 04/23/23 04:00 Room Air 04/22/23 23:43 Room Air 04/22/23 23:00 PG Care Time/CCT Total # of Minutes Spent Total Time Spent with Patient: Total time spent is greater than 50% in coordination of care (as documented) at patient's floor/unit and/or counseling patient: Coding Level of Care Code 75275 SUB INP/OBS CARE 2/35MIN Diagnoses Acute kidney failure N17.9 Anemia D64.9 Hypercalcemia E83.52 Hypertension I10 H/O gastric bypass Z98.84
[2023-04-23 11:32] LABS: Alpha 1 Globulin 0.4 g/dL (0.2-0.3); Alpha 2 Globulin 0.9 g/dL (0.5-0.9); Beta-1-Globulin 0.3 g/dL (0.4-0.6); Beta-2-Globulin 0.3 g/dL (0.2-0.5); Gamma Globulin 0.5 g/dL (0.8-1.7); Monoclonal Protein Band 1 DNR g/dL (NONE DETECTED); Monoclonal Protein Band 2 DNR g/dL (NONE DETECTED); Monoclonal Protein Band 3 DNR g/dL (NONE DETECTED); Total Protein 5.3 g/dL (6.1-8.1)
--- NOTE | 2023-04-23 12:19 | Discharge Summary ---
Date of Service April 23, 2023 Admission HPI Per Admitting Provider Natasha is a 62-year-old female with a past medical history of psoriatic arthritis, iron deficiency anemia, hypertension, BRIANNA who was recommended for direct admission for hypercalcemia and potential malignancy evaluation. She was seen by oncology Dr. Doss as an outpatient for hemoglobin decreased from 12-7. She was found to be iron deficient, during that workup she was also noted to have an BRIANNA. She was given IV iron, patient subsequently with weakness and was seen at [facility] and was found to have a potassium of 2.0, hypercalcemia 13.5. She was hydrated and then discharged however repeat creatinine remained with elevation at 1.78, hypercalcemia remained at 13.4 and patient saw nephrology for outpatient referral. On assessment was recommended for direct admission for additional workup and evaluation, accepted by hospitalist service via transfer center. On admission repeat labs including CMP, CBC, ionized calcium, SPEP, UPEP, serum light chains, vitamin D, PTHRP, and CTA/P were ordered Natasha is seen at the bedside. She reports that she has had 20 pounds of weight loss, fatigue, no appetite for 7 to 8 weeks. She reports she has minimal appetite food sometimes makes her nauseous and she has had around 3 episodes of nonbloody, nonmelanic, nonbilious emesis weekly over this time. Endorses intermittent constipation without melena/hematochezia. She reports food does not cause her pain and she does not have abdominal pain, but it does make her little nauseous and she just has a very poor appetite. She has had no fevers but feels fatigued and has had some intermittent chills and finds she gets cold easily. No rigors. She has had no dysuria but has had urinary urgency. Urine does seem to have a strong odor. No flank pain. Endorse history of kidney stones. She reports that she saw a rheumatology who were concerned and she was referred to oncology for anemia. Was found to have low iron levels and BRIANNA, on subsequent PCP follow-up after receiving IV iron x 1 last Sunday her calcium was elevated and potassium was low and she was admitted to [facility]. She reports she was discharged from [facility] this morning in order to make her nephrology appointment, assessment at that time concerning for her persistent hypercalcemia and BRIANNA with weight loss and overall decline and was recommended for direct admission at that time. She reports she does have a history of cardiac disease in her family, with a brother that at around age 48 from a heart attack. She reports she does have a history of reduced ejection fraction, she had a cardiac catheterization in 2007 at [facility] for which stents were not required. She believes she was told she was thought to have had a viral illness, she is on aspirin but had no stents placed. Subsequent echo showed an EF improvement from 40% at that time to follow-up 55%. She sees Dr. Boothe at present. She reports that she sometimes gets palpitations and short of breath on exertion but she has not had any chest pain or neck/jaw pain She reports she has a loop recorder for palpitations currently in place, she is not on any beta-blockers. She did have her losartan increased from 50 mg once daily up to 50 mg twice da sergo on April 12. This has been held today by nephrology. She has not had any asymmetrical leg swelling, does endorse some slight ankle swelling bilaterally. No calf pain. Does have a history of psoriatic arthritis and is on Otezla and sulfasalazine for this Has history of hypothyroidism, takes Synthroid 150 mcg which was last increased from 125 mg approximately 6 weeks ago Pt Record Radioactive iodine treatment 1980 Tonsillectomy 1986 Hysterectomy 1992 Cholecystectomy 2005 Carpal tunnel release left wrist 2006 Heart catheterization 2008 Colonoscopies in 2009, 2014, 2019 Gastric bypass 2009 Bladder sling 2010 Left knee arthroscopy 2012 Breast reduction surgery 2014 Dental implants 2013, 2015 Abdominoplasty 2015 Loop recorder placement 2021 Admission Exam Per Admitting Provider General: A&Ox3. NAD. Cooperative. HEENT: Atraumatic, normocephalic. PERLAA. EoM intact. Pulm: CTAB A&P. -wheezes, -rales, -rhonchi. Symmetrical chest rise. No increase in work of breathing. No respiratory distress. Cardiac: RRR, -mrg. Radial pulses intact and symmetrical. Abdominal: Nontender, nondistended, soft. BS diminished Principal Diagnosis Hypercalcemia likely secondary to calcium citrate Iron deficiency anemia. Remaining GI workup (colonoscopy) will need to be pursued outpatient Unintentional weight loss. Malignancy workup will need to be pursued outpatient Acute kidney injury related to anemia and hypercalcemia in the setting of ARB therapy. Improved Discharge Exam General: Awake, conversant Heart: S1, S2/regular rate and rhythm, no murmur rubs or gallops Lungs: Clear to auscultation bilaterally. Normal effort Abdomen: Soft/nontender/nondistended. No hepatosplenomegaly Extremities: No clubbing/cyanosis. No edema Behavior: Appropriate, cooperative Discharge Data Allergies Allergy/AdvReac Type Severity Reaction Status Date / Time doxycycline Allergy Hives Verified 04/18/23 13:39 Consultations 04/18/23 16:14 Consult Nephrology Routine 04/18/23 20:45 Radiology Transfer Of Images Stat 04/18/23 21:13 Consult General Surgery Routine 04/19/23 08:01 Consult Gastroenterology Routine 04/20/23 09:01 Consult Cardiology Routine Procedures Performed Operation Date: 04/19/23 16:30 Actual Procedures p Esophagogastroduodenoscopy - Sherin Aggarwal MD Ordered Studies 04/18/23 16:14 CT abd pelvis wo con Urgent 04/18/23 17:40 US venous duplex leg [US venous doppler LE BI] Urgent 04/18/23 21:04 CT abd pelvis oral con only Stat Hospital Course (1) Hypercalcemia: Hypercalcemia, weight loss - OSH PTH normal, -PTHRP ordered SPEP, UPEP, serum free chain analysis ordered and pending Calcium citrate was stopped as outpatient Serum calcium corrected to 10 after IV fluid IV fluid discontinued 04/20 Malignancy workup: Mammogram 01/27 negative per patient report, chest x-ray 04/28 negative GI workup to be completed outpatient [place]/lambda free light chains, 24-hour urine immunoelectrophoresis, SPEP, UPEP pending Calcium level should be rechecked in the next few days PCP follow-up (2) H/O gastric bypass: History of Jeremias-en-Y bypass bariatric surgery 2008 with Michael Ritter -Initial CTA/P on admission "There is wall thickening with adjacent inflammatory stranding at the gastrojejunal anastomosis and there is also debris present within the excluded stomach. Follow-up with bariatric surgery recommended in order to exclude anastomotic dehiscence." -Since then, the case was discussed w Dr. Ritter At [facility]. Reviewed imaging findings. Suspect that this is likely ulcerative blood rather than dehiscence especially with her stable clinical appearance. Recommend a oral only upper GI CT study to evaluate for anastomotic dehiscence. Upper GI CT was done that ruled out anastomotic dehiscence since. Patient is being treated with PPI and Carafate s/p EGD s/p EGD , no evidence of esophagitis or gastritis on PPI and Carafate needs colonoscopy as outpatient GI follow-up in 1 month (3) Hypertension: on Amlodipine, started Coreg, Losartan was stopped due to BRIANNA Carvedilol increased Cardiology recommends resuming losartan. Nephrology cleared Discontinued hydralazine and resumed losartan home dose Will monitor blood pressure overnight (4) Psoriatic arthritis: Psoriatic Arthritis - Continue home meds (5) Nonischemic cardiomyopathy: History of Nonischemic HF - Records from [place] requested - 2008 cardiac cath --> no stents. Pt was told ?viral cause of EF 40%. Repeat EF 55% - +Palpitations. Has a loop recorder. 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 PCP follow-up Nephrology follow-up in 2 weeks Plan DVT prophylaxis: SCDs, pharmacal prophylaxis held while evaluating for potential ulcerative bleed Disposition: Medical surgical CODE STATUS: Full code Diet: N.p.o. Total Time Total Time Spent Total Time Spent (In Minutes): 35 Discharge Plan Discharge Items Patient Disposition: Home - Self-Care Reason For Visit: hyperglycenia, iron deficency, brianna Discharge Diagnosis: Hypercalcemia likely secondary to calcium citrate Iron deficiency anemia. Remaining GI workup (colonoscopy) will need to be pursued outpatient Unintentional weight loss. Malignancy workup will need to be pursued outpatient Acute kidney injury related to anemia and hypercalcemia in the setting of ARB therapy. Improved Activity: Resume your previous activity Non-emergency contact: Primary Care Provider Call non-emergency contact if: you have any medication questions and your symptoms worsen Follow-up/Referrals: Pastor Saleh MD [Physician] - 05/04/23 3:00 pm Bartolo Waggoner MD [Primary Care Provider] - (I tried reaching your PCP office to schedule a follow up; however, I was unable to get through. Please contact their office to get scheduled for a follow up. Thank you! 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-up with road supervisor in 1 month Pending Studies at Discharge: Yes Studies:: SPEP, UPEP, PTHrp, kappa/lambda free light chains, 24-hour urine immunoelectrophoresis Stand-Alone Forms: My [facility] Medications and DC Order Prescriptions: New carvedilol 12.5 mg Tablet 12.5 mg PO BIDM 30 Days Qty: 60 0RF pantoprazole 40 mg Tablet,Delayed Release (Dr/Ec) 40 mg PO QAM 30 Days Qty: 30 0RF sucralfate 100 mg/mL Suspension 1 g PO QID 7 Days Qty: 280 0RF Continued Otezla 30 mg tablet 30 mg PO BID mecobalamin (vitamin B12) 1,000 mcg IM MONTHLY levothyroxine 150 mcg capsule 125 mcg PO QAM levetiracetam [Keppra] 500 mg tablet 500 mg PO BID losartan 50 mg tablet 50 mg PO BID Rx Instructions: not currently taking. Took this morning amlodipine 5 mg tablet 5 mg PO HS levocetirizine 5 mg tablet 5 mg PO HS aspirin [Adult Low Dose Aspirin] 81 mg tablet,delayed release (DR/EC) 81 mg PO QAM sulfasalazine 500 mg tablet 0.5 g PO BID Rx Instructions: [id number] twice daily give with food (meal/snack) rosuvastatin 20 mg tablet 20 mg PO HS Discharge Orders: Discharge Order (Routine); Ordered 04/23/23 Ordered By: Eveline David Admission Data Admit Date/Time: 04/18/23 16:02 Attending Provider: Eveline David Admit Provider: Darian Jorgensen Primary Care Provider: Bartolo Waggoner Other Providers: Pastor Saleh; Rodolfo Avila; Leslye Amaya; Tj Brery; Anjelica Lombardi; Mahnaz Alves; Jewell Russell; Shiloh Ruth; Sachin Montes De Oca; Lico Mae; Gautam Marks; Dany Pagan; Norman Lin; Mitzi Carrillo; Jackie Fletcher; Teresa Zhao; Sherin Aggarwal; Chelsea Ruiz; Momo Barkley; Isaiah Miramontes; Christina Ospina; Marvin Randolph Jr; Bartolo Roman Other Interventions: Discharge Summary Assessment (RN) Last Done: 04/23/23 14:42 Coding Level of Care Code 90805 INP/OBS DISCH >30 MIN Diagnoses Hypercalcemia E83.52 H/O gastric bypass Z98.84 Hypertension I10 Psoriatic arthritis L40.50 Nonischemic cardiomyopathy I42.8 Seizure R56.9 Anemia D64.9 Acute kidney failure N17.9
[2023-04-24 05:37] LABS: Abnormal Protein Band 1 DNR mg/24 h (NONE DETECTED); Abnormal Protein Band 2 DNR mg/24 h (NONE DETECTED); Abnormal Protein Band 3 DNR mg/24 h (NONE DETECTED); Creatinine, 24 hr Urine 1.04 g/24 h (0.50-2.15); Protein, Urine 24 Hour 638 mg/24 h (<150); Ur Protein/Creatinine Rat mg/g 611 mg/g creat (<150); Urine Protein/Creatinine Ratio 0.611 (<0.150)
[2023-05-01 12:27] LABS: Free Kappa 42.4 mg/L (3.3-19.4); Free Kappa/Lambda Ratio 1.91 (0.26-1.65); Free Lambda 22.2 mg/L (5.7-26.3)
== END 2023-04-23 15:42 | disposition home or self-care (01) | DRG 641 ==
LOC: 3N 16:02 → SUATTDRO 16:02 → 1E 23:04 → 4W 04-21 18:11